=== PATIENT | female | born 2000 | race Caucasian/White ===

== ENCOUNTER 2025-08-10 17:37 | Emergency (ER) | payer OTHER, SELFPAY ==
--- OUTSIDE RECORDS SUMMARY | 2025-07-27 15:00 | XMS_ITS | Encounter Summary ---
Author Organization [facility] Address [address] [place] [address] Care Team Providers Care Screen Printing Loader Unloader Name Role Phone Unavailable Primary Care Provider Unavailabl e Encounter Details Date Type Department Care Team (Late st Contact Info) Description 07/27/2025 3:00 PM EDT Initial KYM CHARLES [address] [place] [address] Kaley Mares CNM [address] [place], [place] [id number] GA: [id number] Social History Tobacco Use Types Packs/Day Years Used Date Smoking Tobacco: Never Smokeless Tobacco: Never Tobacco Cessation:Counseling Given: Not Answered Alcohol Use Standard Drinks/Week Comments Not Currently 0 (1 standard drink = 0.6 oz pur e alcohol) Estimated Date of Delivery Comme nts Yes 03/01/2026 Based on last me nstrual period of 05/25/2025 (Exact Date) Sex and Gender Information Value Date Recorded Sex Assigned at Not on file Legal Sex Female 12:25 PM EDT Gender Identity Not on file Sexual Orientation Not on file documented as of this encounter Last Filed Vital Signs Vital Sign Reading Time Taken Comments Blood Pressure - - Pulse - - Temperature - - Respiratory Rate - - Oxygen Saturation - - Inhaled Oxygen Concentration - - Weight 75.3 kg (166 lb) 07/27/2025 3:17 PM EDT Height 167.6 cm (5' 6 ) 07/27/2025 3:17 PM EDT Body Mass Index 26.79 07/27/2025 3:17 PM EDT documented in this encounter Plan of Treatment Upcoming Encounters Date Type Department Care Team (Late st Contact Info) Description 08/29/2025 11:00 AM EDT Routine [facility] [address] [place] [address] Kaley Mares, CNM [address] [place] [address] documented as of this encounter Procedures Procedure Name Priority Date/Time Associated Diagnosis Comments URINALYSIS MICROSCOPIC Routine 07/27/2025 4:55 PM EDT Encounter for supervision of other normal in first trimester ([facility]) DRUG TOX MONITORIGN 6 W/ CONF,URINE Routine 07/27/2025 4:55 PM EDT Encounter for supervision of other normal in first trimester ([facility]) CHLAMYDIA/N. GONORRHOEAE RNA, TMA, UROGENITAL Routine 07/27/2025 4:55 PM EDT Encounter for supervision of other normal in first trimester ([facility]) CULTURE, URINE, ROUTINE Routine 07/27/2025 4:55 PM EDT Encounter for supervision of other normal in first trimester ([facility]) TSH W/REFLEX TO FT4 Routine 07/27/2025 3 :45 PM EDT Encounter for supervision of other normal in first trimester ([facility]) HEPATITIS C ANTIBODY Routine 07/27/2025 3:45 PM EDT Encounter for supervision of other normal in first trimester ([facility]) ABO GROUP AND RH TYPE Routine 07/27/2025 3:45 PM EDT Encounter for supervision of other normal in first trimester ([facility]) RUBELLA AB (IGG), IMMUNE STATUS Routine 07/27/2025 3:45 PM EDT Encounter for supervision of other normal in first trimester ([facility]) RPR (DX) W/REFL TITER AND CONFIRMATORY TESTING Routine 07/27/2025 3:45 PM EDT Encounter for supervision of other normal in first trimester ([facility]) HIV-1 AND HIV-2 ANTIBODIES Routine 07/27/2025 3:45 PM EDT Encounter for supervision of other normal in first trimester ([facility]) HEPATITIS B SURFACE ANTIGEN W/REFL CONFIRM Routine 07/27/2025 3:45 PM EDT Encounter for supervision of other normal in first trimester ([facility]) CBC Routine 07/27/2025 3:45 PM EDT Encounter for supervision of other normal in first trimester ([facility]) ANTIBODY SCREEN, RBC W/REFL ID, TITER AND AG Routine 07/27/2025 3:45 PM EDT Encounter for supervision of other normal in first trimester ([facility]) HEMOGLOBIN A1C Routine 07/27/2025 3:45 PM EDT Encounter for supervision of other normal in first trimester ([facility]) documented in this encounter Results * C. trachomatis / N. gonorrhoeae, DNA probe (07/27/2025 4:55 PM EDT) CHLAMYDIA TRACHOMATIS RNA, TMA, UROGENITAL NOT DETECTED NOT DETECTED [facility] NEISSERIA GONORRHOEAE RNA, TMA, UROGENITAL NOT DETECTED NOT DETECTED [facility] (ALWAYS MESSAGE) [facility] Comment: The analytical performance characteristics of this assay, when used to test SurePath(TM) specimens have been determined by [facility]. The modifications have not been cleared or approved by the FDA. This assay has been validated pursuant to the CLIA regulations and is used for clinical purposes. For additional information, please refer to https://education.[employer].Bibulu/faq/OZP885 (This link is being provided for information/ educational purposes only.) Swab Urine specimen obtained by clean catch procedure / Unknown 07/27/2025 4:55 PM EDT 07/28/2025 12:44 AM EDT Narrative Resulting Agency Comment Performing Organization Information Site ID: QPT Name: [facility] Address: [address] [place] [address], [address] [place] [phone] Director: Vincent Ocampo MD us Kaley Mares CNM LAB PATHOLOGY ORDERABLES Fin al Result Performing Organization Address [facility] Co de Phone Number [facility] * (ABNORMAL) URINALYSIS MICROSCOPIC (07/27/2025 4:55 PM EDT) WBC 0-5 < OR = 5 /HPF [facility] RBC NONE SEEN < OR = 2 /HPF [facility] SQUAMOUS EPITHELIAL CELLS 0-5 < OR = 5 /HPF [facility] BACTERIA FEW(A) NONE SEEN /HPF [facility] HYALINE CAST NONE SEEN NONE SEEN /LPF [facility] NOTE [facility] Comment: This urine was analyzed for the presence of WBC, RBC, bacteria, casts, and other formed elements. Only those elements seen were reported. 07/27/2025 4:55 PM EDT 07/28/2025 12:44 AM EDT Narrative Resulting Agency Comment Performing Organization Information Site ID: QPT Name: [facility] Address: [address] [place] [address], [address] [place] [phone] Director: Vincent Ocampo MD us Kaley Mares CNM LAB BLOOD ORDERABLES Final R esult Performing Organization Address [facility] de Phone Number [facility] * Urine culture (07/27/2025 4:55 PM EDT) MICRO NUMBER [id number] [facility] SPECIMEN QUALITY Adequate [facility] SOURCE: ([facility]) URINE [facility] STATUS FINAL [facility] RESULT SEE NOTE [facility] Comment: No Growth Urine Urine specimen obtained by clean catch procedure / Unknown 07/27/2025 4:55 PM EDT 07/28/2025 12:44 AM EDT Narrative Resulting Agency Comment Performing Organization Information Site ID: QPT Name: [facility] Address: [address] [place] [address], [address] [place] [phone] Director: Vincent Ocampo MD us Kaley Mares CNM LAB MICROBIOLOGY - GENERAL O RDERABLES Final Result Performing Organization Address [facility] Co de Phone Number [facility] * DRUG TOX MONITORIGN 6 W/ CONF,URINE (07/27/2025 4:55 PM EDT) AMPHETAMINES NEGATIVE <500 ng/mL [facility] BARBITURATES NEGATIVE <300 ng/mL [facility] BENZODIAZEPINES NEGATIVE <100 ng/mL [facility] COCAINE METABOLITES NEGATIVE <150 ng/mL [facility] MARIJUANA METABOLITE 20 NEGATIVE <20 ng/mL [facility] METHADONE METABOLITE NEGATIVE <100 ng/mL [facility] OPIATES NEGATIVE <100 ng/mL [facility] OXYCODONE NEGATIVE <100 ng/mL [facility] PHENCYCLIDINE NEGATIVE <25 ng/mL [facility] (ALWAYS MESSAGE) [facility] Comment: See Note 1 Note 1 This drug testing is for medical treatment only. Analysis was performed as non-forensic testing and these results should be used only by healthcare providers to render diagnosis or treatment, or to monitor progress of medical conditions. For assistance with interpreting these drug results, please contact a [facility] Toxicology Specialist: [phone] ( ), M-F, 8am-6pm EST. 07/27/2025 4:55 PM EDT 07/28/2025 12:44 AM EDT Narrative Resulting Agency Comment Performing Organization Information Site ID: QPT Name: [facility] Address: [address] [place] [address], [address] [place] [phone] Director: Vincent Ocampo MD us Kaley JARA LAB BODY FLUIDS AND STOOLS O RDERABLES Final Result [facility] * Hepatitis C antibody (07/27/2025 3:45 PM EDT) HEPATITIS C ANTIBODY NON-REACTI VE NON-REACT [facility] Comment: HCV antibody was non-reactive. There is no laboratory evidence of HCV infection. In most cases, no further action is required. However, if recent HCV exposure is suspected, a test for HCV RNA (test code 71155) is suggested. For additional information please refer to http://education.[employer]/faq/DMR45n7 (This link is being provided for informational/ educational purposes only.) Blood Venous blood specimen / Unknown 07/27/2025 3:45 PM EDT 07/27/2025 3:46 PM EDT Narrative [facility] - 07/28/2025 1:09 PM EDT MULTIPLE COLLECTION TIMES FOR SAME TEST TYPE. Resulting Agency Comment Performing Organization Information Site ID: QPT Name: [facility] Address: [address] [place] [address], [address] [place], [place] [id number] Director: Vincent Ocampo MD us Kaley L Floro CN LAB BLOOD ORDERABLES Final R esult Performing Organization Address [facility] de Phone Number [facility] * ABO/Rh (07/27/2025 3:45 PM EDT) ABO GROUP O [facility] RH TYPE RH(D) POSITIVE [facility] Comment: For additional information, please refer to http://education.[employer]/faq/QBK828 (This link is being provided for informational/ educational purposes only.) Blood Venous blood specimen / Unknown 07/27/2025 3:45 PM EDT 07/27/2025 3:46 PM EDT Narrative [facility] - 07/28/2025 1:09 PM EDT MULTIPLE COLLECTION TIMES FOR SAME TEST TYPE. Resulting Agency Comment Performing Organization Information Site ID: QPT Name: [facility] Address: [address] [place] [address], [address] [place], [place] [phone] Director: Vincent Ocampo MD us [facility] LAB BLOOD ORDERABLES Final R esult Performing Organization Address [facility] de Phone Number [facility] * HIV-1 and HIV-2 antibodies (07/27/2025 3:45 PM EDT) HIV FINAL INTERPRETATION HIV NEGATIVE [facility] Comment: HIV-1 antigen and HIV-1/HIV-2 antibodies were not detected. There is no laboratory evidence of HIV infection. HIV AG/AB, 4TH GEN NON-REACTIVE NON-REACT [facility] Blood Venous blood specimen / Unknown 07/27/2025 3:45 PM EDT 07/27/2025 3:46 PM EDT Narrative [facility] - 07/28/2025 1:09 PM EDT MULTIPLE COLLECTION TIMES FOR SAME TEST TYPE. Resulting Agency Comment Performing Organization Information Site ID: QPT Name: [facility] Address: [address] [place] [address], [address] [place] [phone] Director: Vincent Ocampo MD us Kaley L Floro CN LAB BLOOD ORDERABLES Final R esult Performing Organization Address [facility] Co de Phone Number [facility] * TSH W/REFLEX TO FT4 (07/27/2025 3:45 PM EDT) TSH W/REFLEX TO FT4 1.83 mIU/L [facility] Comment: Reference Range > or = 20 Years 0.40-4.50 Ranges First trimester 0.26-2.66 Second trimester 0.55-2.73 Third trimester 0.43-2.91 07/27/2025 3:45 PM EDT 07/27/2025 3:46 PM EDT Narrative [facility] - 07/28/2025 1:09 PM EDT MULTIPLE COLLECTION TIMES FOR SAME TEST TYPE. Resulting Agency Comment Performing Organization Information Site ID: QPT Name: [facility] Address: [address] [place] [address], [address] [place] [phone] Director: Vincent Ocampo MD us Kaley Juan Carlos Mares CN LAB BLOOD ORDERABLES Final R esult Performing Organization Address [facility] de Phone Number [facility] * Hemoglobin A1c (07/27/2025 3:45 PM EDT) Hemoglobin A1C 5.3 <5.7 % [facility] Comment: For the purpose of screening for the presence of diabetes: <5.7% Consistent with the absence of diabetes 5.7-6.4% Consistent with increased risk for diabetes (prediabetes) > or =6.5% Consistent with diabetes This assay result is consistent with a decreased risk of diabetes. Currently, no consensus exists regarding use of hemoglobin A1c for diagnosis of diabetes in children. According to [place] [employer] Association (ADA) guidelines, hemoglobin A1c <7.0% represents optimal control in non- diabetic patients. Different metrics may apply to specific patient populations. Standards of Medical Care in Diabetes(ADA). Blood Venous blood specimen / Unknown 07/27/2025 3:45 PM EDT 07/27/2025 3:46 PM EDT Narrative [facility] - 07/28/2025 1:09 PM EDT MULTIPLE COLLECTION TIMES FOR SAME TEST TYPE. Resulting Agency Comment Performing Organization Information Site ID: QPT Name: [facility] Address: [address] [place] [address], [address] [place] [address] Director: Vincent Ocampo MD us Kaley L Floro CN LAB BLOOD ORDERABLES Final R esult Performing Organization Address [facility] de Phone Number [facility] * RPR (07/27/2025 3:45 PM EDT) RPR (MONITOR) W/REFL TITER NON-REACTI VE NON-REACTI VE [facility] Blood Venous blood specimen / Unknown 07/27/2025 3:45 PM EDT 07/27/2025 3:46 PM EDT Narrative [facility] - 07/28/2025 1:09 PM EDT MULTIPLE COLLECTION TIMES FOR SAME TEST TYPE. Resulting Agency Comment Performing Organization Information Site ID: QPT Name: [facility] Address: [address] [place] [address], [address] [place] [phone] Director: Vincent Ocampo MD Kaley [employer] CN LAB BLOOD ORDERABLES Final R esult Performing Organization Address [facility] de Phone Number [facility] * Antibody screen (07/27/2025 3:45 PM EDT) ANTIBODY SCREEN, RBC W/REFL ID, TITER AND AG NO ANTIBODIES DETECTED [facility] Comment: Reference range No antibodies detected This assay is a screening test for the detection of red blood cell antibodies. The test is not to be used for pretransfusion screening or for the medical management of an alloimmunized . Blood Venous blood specimen / Unknown 07/27/2025 3:45 PM EDT 07/27/2025 3:46 PM EDT Narrative [facility] - 07/28/2025 1:09 PM EDT MULTIPLE COLLECTION TIMES FOR SAME TEST TYPE. Resulting Agency Comment Performing Organization Information Site ID: QPT Name: [facility] Address: [address] [place] [address], [address] [place] [address] Director: Vincent Ocampo MD Kaley Mares CNM LAB BLOOD ORDERABLES Final R esult [facility] * CBC (07/27/2025 3:45 PM EDT) WHITE BLOOD CELL COUNT 9.2 3.8 - 10.8 Thousand/u L [facility] RED BLOOD CELL COUNT 4.25 3.80 - 5.10 Million/uL [facility] HEMOGLOBIN 12.1 11.7 - 15.5 g/dL [facility] HEMATOCRIT 37.0 35.0 - 45.0 % [facility] MCV 87.1 80.0 - 100.0 fL [facility] MCH 28.5 27.0 - 33.0 pg [facility] MCHC 32.7 32.0 - 36.0 g/dL [facility] Comment: For adults, a slight decrease in the calculated MCHC value (in the range of 30 to 32 g/dL) is most likely not clinically significant; however, it should be interpreted with caution in correlation with other red cell parameters and the patient's clinical condition. RDW 11.9 11.0 - 15.0 % [facility] PLATELET COUNT 335 140 - 400 Thousand/u L [facility] MPV 10.0 7.5 - 12.5 fL [facility] Blood Venous blood specimen / Unknown 07/27/2025 3:45 PM EDT 07/27/2025 3:46 PM EDT Narrative [facility] - 07/28/2025 1:09 PM EDT MULTIPLE COLLECTION TIMES FOR SAME TEST TYPE. Resulting Agency Comment Performing Organization Information Site ID: QPT Name: [facility] Address: [address] [place] [address], [address] [place] [phone] Director: Vincent Ocampo MD Kaley Mares CNM LAB BLOOD ORDERABLES Final R esult [facility] * Rubella antibody, IgG (07/27/2025 3:45 PM EDT) RUBELLA AB (IGG), IMMUNE STATUS 3.74 Index [facility] Comment: Index Interpretation ----- <0.90 Not consistent with immunity 0.90-0.99 Equivocal > or = 1.00 Consistent with immunity The presence of rubella IgG antibody suggests immunization or past or current infection with rubella virus. Blood Venous blood specimen / Unknown 07/27/2025 3:45 PM EDT 07/27/2025 3:46 PM EDT Narrative [facility] - 07/28/2025 1:09 PM EDT MULTIPLE COLLECTION TIMES FOR SAME TEST TYPE. Resulting Agency Comment Performing Organization Information Site ID: QPT Name: [facility] Address: [address] [place] [address], [address] [place] [phone] Director: Vincent Ocampo MD Kaley Mares [facility] LAB BLOOD ORDERABLES Final R esult Performing Organization Address [facility] Co de Phone Number [facility] * Hepatitis B surface antigen (07/27/2025 3:45 PM EDT) HEPATITIS B SURFACE ANTIGEN NON-REACTI VE NON-REACTI VE [facility] Comment: For additional information, please refer to http://education.[employer]/faq/FBO492 (This link is being provided for informational/ educational purposes only.) Blood Venous blood specimen / Unknown 07/27/2025 3:45 PM EDT 07/27/2025 3:46 PM EDT Narrative [facility] - 07/28/2025 1:09 PM EDT MULTIPLE COLLECTION TIMES FOR SAME TEST TYPE. Resulting Agency Comment Performing Organization Information Site ID: QPT Name: [facility] Address: [address] [place] [address], [address] [place] [phone] Director: Vincent Ocampo MD Kaley Mares CNM LAB BLOOD ORDERABLES Final R esult [facility] documented in this encounter Visit Diagnoses Diagnosis Encounter for supervision of other normal in first trimester ([facility]) documented in this encounter
--- OUTSIDE RECORDS SUMMARY | 2025-07-27 15:30 | XMS_ITS | Encounter Summary ---
Author Organization [facility] Address [address] [place] [address] Care Team Providers Care Customer Sales Specialist Name Role Phone Unavailable Primary Care Provider Unavailabl e Encounter Details Date Type Department Care Team (Latest Contact Info) Description 07/27/2025 3:30 PM EDT Ancillary Procedure [facility] [address] [facility] [address] [place] [address] Amenorrhea; examination or test, positive result ([facility]) Social History Tobacco Use Types Packs/Day Years Used Date Smoking Tobacco: Never Smokeless Tobacco: Never Alcohol Use Standard Drinks/Week Comments Not Currently [...] on file documented as of this encounter Plan of Treatment Upcoming Encounters Date Type Department Care Team (Late st Contact Info) Description 08/29/2025 11:00 AM EDT Routine [facility] [address] [place] [address] Kaley Mares CNM [address] [place] [address] documented as of this encounter Procedures Procedure Name Priority Date/Time Associated Diagnosis Comments US OB < 14 WEEKS EARLY Routine 07/27/2025 3:46 PM EDT Amenorrhea examination or test, positive result ([facility]) documented in this encounter Results * US OB less than 14 weeks early (07/27/2025 3:46 PM EDT) Anatomical Region Laterality Modality Body Ultrasound 07/27/2025 4:53 PM EDT Impressions 07/28/2025 7:45 AM EDT Findings consistent with a live intrauterine gestation, current sonographic age of 9weeks and 1 days resulting in an estimated date of delivery of March 01, 2026. TRANSCRIBED BY: ELECTRONICALLY SIGNED BY: Zak Edmondson MD Narrative 07/28/2025 7:45 AM EDT FINDINGS: A single intrauterine gestational sac is present, 3.6 cm 8 weeks and 6 days. No subchorionic hemorrhage. A single pole is present. Normal heart rate at 176 beats per minute. Yolk sac also is seen. Current sonographic age is 9 weeks and 1 days based on the crown-rump length measurement of 2.4cm. Based on this age, current estimated date of delivery is March 01, 2026. No pelvic fluid or adnexal mass present. Cervix closed, length is 3.3 cm. Procedure Note Zak Edmondson MD - 07/28/2025 FINDINGS: A single intrauterine gestational sac is present, 3.6 cm 8 weeks and 6days. No subchorionic hemorrhage. A single pole is present. Normalfetal heart rate at 176 beats per minute. Yolk sac also is seen.Current sonographic age is 9 weeks and 1 days based on the crown-rumplength measurement of 2.4cm. Based on this age, current estimated dateof delivery is March 01, 2026. No pelvic fluid or adnexal mass present.Cervix closed, length is 3.3 cm. IMPRESSION: Findings consistent with a live intrauterine gestation, currentsonographic age of 9weeks and 1 days resulting in an estimated date ofdelivery of March 01, 2026. TRANSCRIBED BY: ELECTRONICALLY SIGNED BY: Zak Edmondson MD Kaley Mares CNM IMG OB US PROCEDURES Final R esult documented in this encounter Visit Diagnoses Diagnosis Amenorrhea Absence of menstruation examination or test, positive result ([facility]) examination or test, positive result documented in this encounter
--- OUTSIDE RECORDS SUMMARY | 2025-08-04 13:00 | XMS_ITS | Encounter Summary ---
Author Organization [facility] Address [address] [place] [address] Care Team Providers Care Sealer Operator Name Role Phone Kaitlin Ellison MD Primary Care Provider [phone] Herber Thomas MD Unavailable Jeromy Sanchez MD Unavailable [phone] Sonja Kat APRN.DAMAGED FREIGHT INSPECTOR Unavailable [phone] Source Comments In the event this information is protected by the Federal Confidentiality of Alcohol and Drug AbusePatient Records regulations: The Federal rules restrict any use of the information to criminally investigate or prosecute any alcohol or drug abuse patient.[facility] Reason for Visit * [place] Prior Authorization (Routine) - Authorized Specialty Diagnoses / Procedures Referred By Contac t 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 AGALSIDASE BETA INJECTION Jeromy Sanchez MD [address] [place] [address] [place] [address] Phone: tel: fax: Hematology/Oncology [address] [place] [address] [place] [address] Phone: tel: fax: Referral ID Status Reason Start Date Expiration Date V isits Requested Visits Authorized [id number] Authorized 12/11/2022 12/15/2025 73 73 Encounter Details Date Type Department Care Team (Latest Contact Info) Description 08/04/2025 1:00 PM EDT Infusion Center Hematology/Oncology [address] [place] [address] [place] [address] Fabry disease (HCC) (Primary Dx) Social History Tobacco Use Types Packs/Day Years Used Date Smoking Tobacco: Never Passive Smoke Exposure: Never Smokeless Tobacco: Never Alcohol Use Standard Drinks/Week Comments Yes 0 (1 standard drink = 0.6 oz pur e alcohol) occassionally PHQ-2 Answer Date Recorded PHQ-2 score 0 11/21/2022 Area Deprivation Index Answer Date Yoni rded National Score (1-100), lower number is lower ri sk 74 08/05/2024 State Score (1-10), lower number is lower risk 6 08/05/2024 Data from: https://www.neighborhoodatlas.medicine.[facility]/. Last address used for calculation [address] [place] [address] 08/05/2024 Comments No Sex and Gender Information Value Date Recorded Sex Assigned at Not on file Legal Sex Female 11:15 AM EDT Gender Identity Not on file Sexual Orientation Not on file documented as of this encounter Last Filed Vital Signs Vital Sign Reading Time Taken Comments Blood Pressure 107/66 08/04/2025 1:07 PM EDT Pulse 75 08/04/2025 1:07 PM EDT Temperature 36.7 C (98.1 F) 08/04/2025 1:07 PM EDT Respiratory Rate 16 08/04/2025 1:07 PM EDT Oxygen Saturation 99% 08/04/2025 1:07 PM EDT Inhaled Oxygen Concentration - - Weight 74.8 kg (164 lb 14.5 oz) 08/04/2025 1:07 PM EDT Height - - Body Mass Index 26.62 03/10/2025 12:04 PM EDT documented in this encounter Plan of Treatment Upcoming Encounters Date Type Department Care Team (Latest Contact Info) Description 08/18/2025 1:15 PM EDT Infusion Center Hematology/Oncology [address] [place] [address] [place] [address] Fabrazyme every 2 weeks 09/01/2025 1:15 PM EDT Infusion Center Hematology/Oncology [address] [place] [address] Fabrazyme every 2 weeks 09/15/2025 1:30 PM EDT Infusion Center Hematology/Oncology [address] [place] [address] Fabrazyme every 2 weeks 09/29/2025 1:15 PM EST Infusion Center Hematology/Oncology [address] [place] [address] Fabrazyme every 2 weeks 10/13/2025 1:15 PM EST Infusion Center Hematology/Oncology [address] [place] [address] Fabrazyme every 2 weeks documented as of this encounter Visit Diagnoses Diagnosis Fabry disease (HCC)- Primary Lipidoses documented in this encounter Administered Medications Inactive Administered Medications - up to 3 most recent administrations Medication Order MAR Action Action Date Dose Rate Site agalsidase beta 70 mg in NaCl 0.9% 124 mL (FABRAZYME) 70 mg (1 mg/kg/dose 70 kg Order-specific weight), INTRAVENOUS, ONCE, 1 dose, On Thu08/04/25 at 1330, EXP: Immediate Use. Initiate at 15 mg/hour. For subsequent infusions, infusion rate for patients weighing greater than or equal to 30 kg can be increased each infusion by 3 to 5 mg/hr based on tolerance (minimum duration is 1.5 hours). Do not titrate above 15 mg/hr for patients weighing less than 30 kg. Immediate Use Administer with 0.2 micron filter - Refrigerate.Indications:F abry disease (HCC) New Bag/Syringe/Bottle 08/04/2025 1:32 PM EDT 70 mg 83 mL/hr documented in this encounter Care Teams Sealer Operator Relationship Specialty Start Date End Date Kaitlin Ellison MD [address] [place] [address] PCP - General Family Medicine 05/30/22 Herber Thomas MD [address] [place] [address] Primary Staff Physician Cardiology 10/31/22 Jeromy Sanchez MD [address] [place] [address] Physician Hematology/Oncology 01/01/23 Snoja Kat APRN.DAMAGED FREIGHT INSPECTOR [address] [place] [address] Nurse Practitioner Hematology/Oncology 01/01/23 documented as of this encounter
[2025-08-10 17:51] VITALS: BP 103/70; PULSE 69; TEMP 37.1; O2SAT 100; BMI 25.8
--- NOTE | 2025-08-10 18:06 | US_ITS ---
[facility] [place] [id number] Patient Name: KVNG CARIAS MRN: [id number] date: 2000 Sex: F Assigned Patient Location: ER Current Patient Location: ED.MAIN Accession/Order Number: [id number] Exam Date: 08/10/2025 19:30 Report Date: 08/10/2025 20:26 At the request of: MARTHA WALKER MD Procedure: US OB transvaginal Transvaginal obstetrical ultrasound INDICATION: History of IVF, pain x1 day COMPARISON: None FINDINGS: Uterus anteverted. Within the uterus, there is evidence of gestational sac, yolk sac, and pole. Cardiac activity visualized with 159 beats per minutes. Heterogeneous focus adjacent to the gestational sac measuring 4.6 x 1.6 x 1.7 cm possible implantational hemorrhage Right ovary 3.0 x 1.8 x 2.2 cm. Unremarkable. Left ovary 2.5 x 1.9 x 1.8 cm size unremarkable. Cervical length 3.8 cm and closed. US/US OB transvaginal IMPRESSION: Single live intrauterine gestation with heart rate 159bpm. Heterogeneous signal adjacent gestational sac noted 4.2 cm x 1.6 x 1.7 cm in size. Questionable a implantational hemorrhage. Close attention on follow-up imaging recommended. Impression dictated by: John Arguelles M.D. 08/10/2025 8:26 PM Dictation Location: [place] [address] Electronically authenticated by: [id number] Y Date: 08/10/2025 20:26
--- OUTSIDE RECORDS SUMMARY | 2025-08-10 18:16 | XMS_ITS | Encounter Summary ---
Author Organization [facility] Address [address] [place] [address] Care Team Providers Care Field Court Researcher Name Role Phone Kaitlin Ellison MD Primary Care Provider [phone] Herber Thomas MD Unavailable Jeromy Sanchez MD Unavailable [phone] Sonja Kat TEAMCENTER SOLUTION ARCHITECT.CHIEF SUPPLY CHAIN OFFICER Unavailable Jamila Nix RN Unavailable [phone] Source Comments In the event this information is protected by the Federal Confidentiality of Alcohol and Drug AbusePatient Records regulations: The Federal rules restrict any use of the information to criminally investigate or prosecute any alcohol or drug abuse patient.[facility] Encounter Details Date Type Department Care Team (Late st Contact Info) Description 03/13/2023 Get Medical Advice [facility] [address] [id number] Hamida Kumar, [facility] [address] [place] [address] Home Infusion Social History Tobacco Use Types Packs/Day Years Used Date Smoking Tobacco: Never Passive Smoke Exposure: Never Smokeless Tobacco: Never Alcohol Use Standard Drinks/Week Comments Yes 0 (1 standard drink = 0.6 oz pur e alcohol) occassionally PHQ-2 Answer Date Recorded PHQ-2 score 0 11/21/2022 Area Deprivation Index Answer Date Yoni rded National Score (1-100), lower number is lower ri sk 62 11/28/2022 State Score (1-10), lower number is lower risk N ot on file 11/28/2022 Data from: https://www.neighborhoodatlas.medicine.[facility]/. Last address used for calculation [address] 11/28/2022 Comments No Sex and Gender Information Value Date Recorded Sex Assigned at Not on file Legal Sex Female 11:15 AM EDT Gender Identity Not on file Sexual Orientation Not on file documented as of this encounter Plan of Treatment Upcoming Encounters Date Type Department Care Team (Latest Contact Info) Description 08/18/2025 1:15 PM EDT Infusion Center Hematology/Oncology [address] [facility] [place] [address] Fabrazyme every 2 weeks 09/01/2025 1:15 PM EDT Infusion Center Hematology/Oncology [address] [facility] [place] [address] Fabrazyme every 2 weeks 09/15/2025 1:30 PM EDT Infusion Center Hematology/Oncology [address] [place] [address] [place] [address] Fabrazyme every 2 weeks 09/29/2025 1:15 PM EST Infusion Center Hematology/Oncology [address] [facility] [place] [address] Fabrazyme every 2 weeks 10/13/2025 1:15 PM EST Infusion Center Hematology/Oncology [address] [place] [address] [place] [address] Fabrazyme every 2 weeks documented as of this encounter Visit Diagnoses Not on filedocumented in this encounter Care Teams Field Court Researcher Relationship Specialty Start Date End Date Kaitlin Ellison MD [address] [place] [address] PCP - General Family Medicine 05/30/22 Herber Thomas MD [address] [place] [address] Primary Staff Physician Cardiology 10/31/22 Jeromy Sanchez MD [address] [place] [address] [place] [address] Physician Hematology/Oncology 01/01/23 Sonja Kat APRN.CHIEF SUPPLY CHAIN OFFICER [address] [place] [address] [place] [address] Nurse Practitioner Hematology/Oncology 01/01/23 Jamila Nix, ARNALDO [address] [place] [address] [place] [address] Specialty Vibration Technician Hematology/Oncology 01/01/23 04/27/25 documented as of this encounter
--- OUTSIDE RECORDS SUMMARY | 2025-08-10 18:16 | XMS_ITS | Encounter Summary ---
Author Organization [facility] Address [address] [place] [address] Care Team Providers Care Ball Worker Name Role Phone Kaitlin Ellison MD Primary Care Provider [phone] Herber Thomas MD Unavailable Jeromy Sanchez MD Unavailable [phone] Sonja Kat RADAR SCIENTIST.PARTY PLAN SALES AGENT Unavailable [phone] Jamila Nix RN Unavailable [phone] Source Comments In the event this information is protected by the Federal Confidentiality of Alcohol and Drug AbusePatient Records regulations: The Federal rules restrict any use of the information to criminally investigate or prosecute any alcohol or drug abuse patient.[facility] Encounter Details Date Type Department Care Team (Latest Contact Info) Description 01/07/2024 Patient Msg Reproductive Endocrinology Infertility [address] [id number] Jay Scherer MD [address] [place] [address] Nice meeting you both! Social History Tobacco Use Types Packs/Day Years [...] N ot on file 11/28/2022 Data from: https://www.neighborhoodatlas.medicine.[facility]/. Last address used for calculation [address] 11/28/2022 Comments No Sex and Gender Information Value Date Recorded Sex Assigned at Not on file Legal Sex Female 11:15 AM EDT Gender Identity Not on file Sexual Orientation Not on file documented as of this encounter Plan of Treatment Upcoming Encounters Date Type Department Care Team (Latest Contact Info) Description 08/18/2025 1:15 PM EDT Infusion Center Hematology/Oncology [address] [place] [address] [place] [address] Fabrazyme every 2 weeks 09/01/2025 1:15 PM EDT Infusion Center Hematology/Oncology [address] [place] [address] [place] [address] Fabrazyme every 2 weeks 09/15/2025 1:30 PM EDT Infusion Center Hematology/Oncology [address] [place] [address] [place] [address] Fabrazyme every 2 weeks 09/29/2025 1:15 PM EST Infusion Center Hematology/Oncology [address] [place] [address] [place] [address] Fabrazyme every 2 weeks 10/13/2025 1:15 PM EST Infusion Center Hematology/Oncology [address] [place] [address] [place] [address] Fabrazyme every 2 weeks documented as of this encounter Visit Diagnoses Not on filedocumented in this encounter Care Teams Ball Worker Relationship Specialty Start Date End Date Kaitlin Ellison MD [address] [place] [address] PCP - General Family Medicine 05/30/22 Herber Thomas MD [address] [place] [address] Primary Staff Physician Cardiology 10/31/22 Jeromy Sanchez MD [address] [facility] [place] [place] [address] Physician Hematology/Oncology 01/01/23 Sonja Kat, PONCE.PARTY PLAN SALES AGENT [address] [place] [address] [place] [address] Nurse Practitioner Hematology/Oncology 01/01/23 Jamila Nix, ARNALDO [address] [facility] [place] [place] [address] Specialty Curtain Worker Hematology/Oncology 01/01/23 04/27/25 documented as of this encounter
--- OUTSIDE RECORDS SUMMARY | 2025-08-10 18:16 | XMS_ITS | Encounter Summary ---
Author Organization [facility] Address [address] [place] [address] Care Team Providers Care Recruitment And Outreach Assistant Name Role Phone Kaitlin Ellison MD Primary Care Provider [phone] Herber Thomas MD Unavailable Jeromy Sanchez MD Unavailable [phone] Sonja Kat REGISTERED DENTAL ASSISTANT.PRODUCTION DRILLING MACHINE OPERATOR Unavailable [phone] Jamila Nix RN Unavailable [phone] Source Comments In the event this information is protected by the Federal Confidentiality of Alcohol and Drug AbusePatient Records regulations: The Federal rules restrict any use of the information to criminally investigate or prosecute any alcohol or drug abuse patient.[facility] Encounter Details Date Type Department Care Team (Latest Contact Info) Description 02/29/2024 Patient Msg Reproductive Endocrinology Infertility [address] [place] [address] Provider, [facility] Infertility Benefits Social History Tobacco Use Types Packs/Day Years [...] N ot on file 11/28/2022 Data from: https://www.neighborhoodatlas.medicine.[facility]/. Last address used for calculation [address] [place] [address] [address] 11/28/2022 Comments No Sex and Gender Information Value Date Recorded Sex Assigned at Not on file Legal Sex Female 11:15 AM EDT Gender Identity Not on file Sexual Orientation Not on file documented as of this encounter Plan of Treatment Upcoming Encounters Date Type Department Care Team (Latest Contact Info) Description 08/18/2025 1:15 PM EDT Infusion Center Hematology/Oncology [address] [place] [address] [place] [address] Fabrazyme every 2 weeks 09/01/2025 1:15 PM EDT Infusion Center Hematology/Oncology [address] [place] [address] [place] [address] Fabrazyme every 2 weeks 09/15/2025 1:30 PM EDT Infusion Center Hematology/Oncology [address] [place] [address] [place] [address] Fabrazyme every 2 weeks 09/29/2025 1:15 PM EST Infusion Center Hematology/Oncology [address] [place] [address] [place] [address] Fabrazyme every 2 weeks 10/13/2025 1:15 PM EST Infusion Center Hematology/Oncology [address] [place] [address] [place] [address] Fabrazyme every 2 weeks documented as of this encounter Visit Diagnoses Not on filedocumented in this encounter Care Teams Recruitment And Outreach Assistant Relationship Specialty Start Date End Date Kaitlin Ellison MD [address] [place] [address] PCP - General Family Medicine 05/30/22 Herber Thomas MD [address] [place] [address] Primary Staff Physician Cardiology 10/31/22 Jeromy Sanchez MD [address] [facility] [place] [address] Physician Hematology/Oncology 01/01/23 Sonja Kat APRN.PRODUCTION DRILLING MACHINE OPERATOR [address] [facility] [place] [address] Nurse Practitioner Hematology/Oncology 01/01/23 Jamila Nix, ARNALDO [address] [facility] [place] [address] Specialty Informatics Nurse Specialist Hematology/Oncology 01/01/23 04/27/25 documented as of this encounter
--- OUTSIDE RECORDS SUMMARY | 2025-08-10 18:16 | XMS_ITS | Encounter Summary ---
Author Organization [facility] Address [address] [place] [address] Phone Care Team Providers Care Graduate Teaching Associate Name Role Phone Kaitlin Ellison MD Primary Care Provider [phone] Encounter Details Date Type Department Care Team ([facility] st Contact Info) Description 12/07/2024 Lab Requisition [facility] [address] [place] [phone] Hernán Ulrich MD [address] [place] [address] Reproductive Gynecology [place] [address] Missed (HHS-HCC) Social History Tobacco Use Types Packs/Day Years Used Date Smoking Tobacco: Never Assessed Comments Unknown Sex and Gender Information Value Date Recorded Sex Assigned at Not on file Legal Sex Female 6:57 PM EST Gender Identity Not on file Sexual Orientation Not on file documented as of this encounter Plan of Treatment Not on file documented as of this encounter Procedures Procedure Name Priority Date/Time Associated Diagnosis Comments SURGICAL PATHOLOGY EXAM Routine 12/07/2024 1:33 PM EST Missed (HHS-HCC) documented in this encounter Results * Surgical Pathology Exam (12/07/2024 1:33 PM EST) Case Report Surgical Pathology Case: [id number] Authorizing Provider: Hernán Ulrich MD Collected: 12/07/2024 1333 Ordering Location: [facility] Received: 12/07/2024 1902 Center Pathologist: Houston Moss MD Specimen: PRODUCTS OF CONCEPTION 12/13/2024 9:09 AM EST [facility] FINAL DIAGNOSIS A. PRODUCTS OF CONCEPTION: -- EARLY FIRST TRIMESTER CHORIONIC SAC WITH PARTIALLY HYDROPIC/POORLY VASCULARIZED VILLI --WELL-PRESERVED GESTATIONAL ENDOMETRIUM AND IMPLANTATION SITE 12/13/2024 9:09 AM EST [facility] at 0909 EST By the signature on this report, the individual or group listed as making the Final Interpretation/Di agnosis certifies that they have reviewed this case. 12/13/2024 9:09 AM EST [facility] Clinical History None provided 12/13/2024 9:09 AM EST [facility] Gross Description A: Received in formalin, labeled with the patient s name and hospital number and products of conception , are multiple fragments of jackson-brown soft tissue and clotted blood aggregating to 6.6 x 6.3 x 2.4 cm. Possible villous tissue is identified measuring 2.0 x 1.3 x 0.5 cm. Facility Maintenance Mechanic sections are submitted in 3 cassettes. BRUNA Summary of Cassettes: Specimen Label Site A 1 possible villous tissue 2 non-villous tissue 3 additional villous and non-villous tissue 12/13/2024 9:09 AM EST [facility] Tissue (PRODUCTS OF CONCEPTION) 12/07/2024 1:33 PM EST 12/07/2024 7:02 PM EST Hernán Ulrich MD LAB PATHOLOGY ORDERABLES F inal Result [facility] [address] [address] documented in this encounter Visit Diagnoses Diagnosis Missed ([facility]) Missed documented in this encounter Care Teams Graduate Teaching Associate Relationship Specialty Start Date End Date Kaitlin Ellison MD [address] [place] [address] [place] [address] PCP - General Family Medicine 12/07/24 documented as of this encounter
--- OUTSIDE RECORDS SUMMARY | 2025-08-10 18:16 | XMS_ITS | Encounter Summary ---
Author Organization [facility] Address [address] [place] [address] Care Team Providers Care Fagot Heater Helper Name Role Phone Kaitlin Ellison MD Primary Care Provider Herber Thomas MD Unavailable Jeromy Sanchez MD Unavailable [phone] Sonja Kat TECHNICAL SERVICES REP.SUPERVISOR MOLD CONSTRUCTION Unavailable [phone] Jamila Nix RN Unavailable Source Comments In the event this information is protected by the Federal Confidentiality of Alcohol and Drug AbusePatient Records regulations: The Federal rules restrict any use of the information to criminally investigate or prosecute any alcohol or drug abuse patient.[facility] Encounter Details Date Type Department Care Team (Late st Contact Info) Description 10/28/2024 Get Medical Advice [facility] [address] [phone] Provider, [facility] Infusions while Social History Tobacco Use Types Packs/Day Years [...] is lower risk 6 08/05/2024 Data from: https://www.neighborhoodatlas.medicine.[facility]/. Last address used for calculation [address] [place] [address] 08/05/2024 Comments No Sex and Gender Information Value Date Recorded Sex Assigned at Not on file Legal Sex Female 11:15 AM EDT Gender Identity Not on file Sexual Orientation Not on file documented as of this encounter Plan of Treatment Upcoming Encounters Date Type Department Care Team (Latest Contact Info) Description 08/18/2025 1:15 PM EDT Infusion Center Hematology/Oncology [address] [place] [address] [place] [address] Fabrazyme every 2 weeks 09/01/2025 1:15 PM EDT Infusion Center Hematology/Oncology [address] [place] [address] [place] [address] Fabrazyme every 2 weeks 09/15/2025 1:30 PM EDT Infusion Center Hematology/Oncology [address] [place] [address] [place] [address] Fabrazyme every 2 weeks 09/29/2025 1:15 PM EST Infusion Center Hematology/Oncology [address] [place] [address] [place] [address] Fabrazyme every 2 weeks 10/13/2025 1:15 PM EST Infusion Center Hematology/Oncology [address] [place] [address] [place] [address] Fabrazyme every 2 weeks documented as of this encounter Visit Diagnoses Not on filedocumented in this encounter Care Teams Fagot Heater Helper Relationship Specialty Start Date End Date Kaitlin Ellison MD [address] [place] [address] PCP - General Family Medicine 05/30/22 Herber Thomas MD [address] [place] [address] Primary Staff Physician Cardiology 10/31/22 Jeromy Sanchez MD [address] [facility] [place] [address] Physician Hematology/Oncology 01/01/23 Sonja Kat APRN.[facility] [address] [facility] [place] [address] Nurse Practitioner Hematology/Oncology 01/01/23 Jamila Nix, ARNALDO [address] [facility] [place] [address] Specialty High Heel Builder Hematology/Oncology 01/01/23 04/27/25 documented as of this encounter
--- OUTSIDE RECORDS SUMMARY | 2025-08-10 18:16 | XMS_ITS | Clinical Summary ---
Author Organization [facility] Address [address] [place] [address] Phone Care Team Providers Care Iridologist Name Role Phone Kaitlin Ellison MD Primary Care Provider [phone] Social History Tobacco Use Types Packs/Day Years Used Date Smoking Tobacco: Never Assessed Comments Unknown Sex and Gender Information Value Date Recorded Sex Assigned at Not on file Legal Sex Female 6:57 PM EST Gender Identity Not on file Sexual Orientation Not on file Plan of Treatment Health Maintenance Due Date Last Done Comments HIV Screening 1999 Lipid Panel 1999 Yearly Adult Physical 1999 MMR Vaccines (1 of 1 - Stand brad series) 2000 HPV Vaccines (1 - 3-dose series) 2014 Hepatitis C Screening 2017 Hepatitis B Vaccines (1 of 3 - 19+ 3-dose series) 2018 Cervical Cancer Screening 2020 HPV/Cotest 2020 Pap Smear 2020 DTaP/Tdap/Td Vaccines (1 - Tdap) 2021 COVID-19 Vaccine (1 - 2023-2 5 season) 2025 Influenza Vaccine (#1) 2025 Zoster Vaccines (1 of 2) 2049 HIB Vaccines Aged Out No longer eligi ble based on patient's age to complete this topic Hepatitis A Vaccines Aged Out No long er eligible based on patient's age to complete this topic IPV Vaccines Aged Out No longer eligi ble based on patient's age to complete this topic Meningococcal Vaccine Aged Out No tyler dawson eligible based on patient's age to complete this topic Pneumococcal Vaccine: Pediat rics and At-Risk Adult Patients Aged Out No longer mark gible based on patient's age to complete this topic Rotavirus Vaccines Aged Out No longer eligible based on patient's age to complete this topic Insurance [employer] Member Subscriber Plan / Payer (Ef fective 2024-Present) Name:SommerHowardDemetria Relation to Subscriber:Self Name:Howard Sommerylee Payer ID:Not on file Type:Not on file Address: [place] [id number] [employer] Member Subscriber Plan / Payer ( fective 2024-Present) Name:Kemal Demetria Relation to Subscriber:Self Name:Demetria Sommer Payer ID:Not on file Type:Not on file Address: [place] [id number] Care Teams Iridologist Relationship Specialty Start Date End Date Kaitlin Ellison MD [address] [place] [address] [place] [address] PCP - General Family Medicine 12/07/24
--- OUTSIDE RECORDS SUMMARY | 2025-08-10 18:16 | XMS_ITS | Encounter Summary ---
Author Organization [facility] Address [address] [place] [address] Care Team Providers Care Agency Trainer Name Role Phone Kaitlin Ellison MD Primary Care Provider [phone] Herber Thomas MD Unavailable Jeromy Sanchez MD Unavailable [phone] Sonja Kat APRN.EXECUTIVE ASSISTANT TO GENERAL COUNSEL Unavailable [phone] Jamila Nix RN Unavailable [phone] Source Comments In the event this information is protected by the Federal Confidentiality of Alcohol and Drug AbusePatient Records regulations: The Federal rules restrict any use of the information to criminally investigate or prosecute any alcohol or drug abuse patient.[facility] Encounter Details Date Type Department Care Team (Late st Contact Info) Description 01/05/2025 Patient Msg [facility] [address] [place] [address] Provider, [facility] genetics - preappt labs Social History Tobacco Use Types Packs/Day Years [...] is lower risk 6 08/05/2024 Data from: https://www.neighborhoodatlas.medicine.[facility]/. Last address used for calculation [address] [place] [address] 08/05/2024 Comments No Sex and Gender Information Value Date Recorded Sex Assigned at Not on file Legal Sex Female 11:15 AM EDT Gender Identity Not on file Sexual Orientation Not on file documented as of this encounter Plan of Treatment Upcoming Encounters Date Type Department Care Team (Latest Contact Info) Description 08/18/2025 1:15 PM EDT Infusion Center Hematology/Oncology [address] [place] [address] [place] [address] Fabrazyme every 2 weeks 09/01/2025 1:15 PM EDT Infusion Center Hematology/Oncology [address] [place] [address] [place] [address] Fabrazyme every 2 weeks 09/15/2025 1:30 PM EDT Infusion Center Hematology/Oncology [address] [place] [address] [place] [address] Fabrazyme every 2 weeks 09/29/2025 1:15 PM EST Infusion Center Hematology/Oncology [address] [place] [address] [place] [address] Fabrazyme every 2 weeks 10/13/2025 1:15 PM EST Infusion Center Hematology/Oncology [address] [place] [address] [place] [address] Fabrazyme every 2 weeks documented as of this encounter Visit Diagnoses Not on filedocumented in this encounter Care Teams Agency Trainer Relationship Specialty Start Date End Date Kaitlin Ellison MD [address] [place] [address] PCP - General Family Medicine 05/30/22 Herber Thomas MD [address] [facility] [facility] [place], [place] [id number] Primary Staff Physician Cardiology 10/31/22 Jeromy Sanchez MD [address] [facility] [place] [address] Physician Hematology/Oncology 01/01/23 Sonja Kat APRN.EXECUTIVE ASSISTANT TO GENERAL COUNSEL [address] [facility] [place] [address] Nurse Practitioner Hematology/Oncology 01/01/23 Jamila Nix, ARNALDO [address] [place] [address] [place] [address] Specialty Wooling Machine Operator Hematology/Oncology 01/01/23 04/27/25 documented as of this encounter
--- OUTSIDE RECORDS SUMMARY | 2025-08-10 18:16 | XMS_ITS | Patient Health Record ---
Author Organization Corporate Office Address [address] [place] [address] [address] [place] [address] Care Team Providers Care Labor And Delivery Nurse Name Role Phone Kaitlin Ellison Primary Care Provider Susana Soria [employer] PRODUCTION MANAGER DIVISION OFFICER [employer] DEPARTMENT, Traci Solares [phone] Reason For Referral No Information Problems Problem Type SNOMED Code ICD Code Onset Dates Problem Status W/U Status Risk Notes Problem Missed (69317177) Missed (O02.1) Active confirmed Problem Female infertility (4628002) Infertility, female (N97.9) Active confirmed 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 Encounters Encounter Location Date Provider Diagnosis 06 Pre Admit Testing [address] [place] [address] 12/07/2024 Traci Soria CNP Pre-op evaluation Z01.818 ; Missed O02.1 ; Infertility, female N97.9 and Fabry disease E75.21 Assessments Encounter Date Diagnosis (ICD Code) Assessment Notes Treatment Notes Treatment Clinical Notes Section Notes 12/07/2024 Pre-op evaluation (ICD-10 - Z01.818) Suction D&C 12/07/2024 Missed (ICD-10 - O02.1) Suction D&C 12/07/2024 Infertility, female (ICD-10 - N97.9) Suction D&C 12/07/2024 Fabry disease (ICD-10 - E75.21) Plan Of Treatment No Information Insurance Providers Payer Name Payer Address Payer Phone Subscriber Number Group Number Insured Name Patient Relationship to Insured Coverage Start Date Coverage End Date MMO [employer] PPO [address] [place] [address] [id number] KVNG CARIAS Self - patient is the insured
--- OUTSIDE RECORDS SUMMARY | 2025-08-10 18:16 | XMS_ITS | Encounter Summary ---
Author Organization [facility] Address [address] [place] [address] Care Team Providers Care Webbing Tacker Name Role Phone Kaitlin Ellison MD Primary Care Provider Herber Thomas MD Unavailable Jeromy Sanchez MD Unavailable [phone] Sonja Kat LOSS PREVENTION SPECIALIST.BUSINESS ADMINISTRATION PROFESSOR Unavailable [phone] Jamila Nix RN Unavailable [phone] Source Comments In the event this information is protected by the Federal Confidentiality of Alcohol and Drug AbusePatient Records regulations: The Federal rules restrict any use of the information to criminally investigate or prosecute any alcohol or drug abuse patient.[facility] Encounter Details Date Type Department Care Team (Late st Contact Info) Description 01/07/2024 Patient Msg Reproductive Endocrinology Infertility [address] [id number] Jay Scherer MD [address] [place] [address] Also Social History Tobacco Use Types Packs/Day Years [...] N ot on file 11/28/2022 Data from: https://www.neighborhoodatlas.medicine.[facility]/. Last address used for calculation [address] 11/28/2022 Comments No Sex and Gender Information Value Date Recorded Sex Assigned at Not on file Legal Sex Female 11:15 AM EDT Gender Identity Not on file Sexual Orientation Not on file documented as of this encounter Plan of Treatment Upcoming Encounters Date Type Department Care Team (Latest Contact Info) Description 08/18/2025 1:15 PM EDT Infusion Center Hematology/Oncology [address] [place] [address] [place] [address] Fabrazyme every 2 weeks 09/01/2025 1:15 PM EDT Infusion Center Hematology/Oncology [address] [place] [address] [place] [address] Fabrazyme every 2 weeks 09/15/2025 1:30 PM EDT Infusion Center Hematology/Oncology [address] [place] [address] [place] [address] Fabrazyme every 2 weeks 09/29/2025 1:15 PM EST Infusion Center Hematology/Oncology [address] [place] [address] [place] [address] Fabrazyme every 2 weeks 10/13/2025 1:15 PM EST Infusion Center Hematology/Oncology [address] [place] [address] [place] [address] Fabrazyme every 2 weeks documented as of this encounter Visit Diagnoses Not on filedocumented in this encounter Care Teams Webbing Tacker Relationship Specialty Start Date End Date Kaitlin Ellison MD [address] [place] [address] PCP - General Family Medicine 05/30/22 Herber Thomas MD [address] [place] [address] Primary Staff Physician Cardiology 10/31/22 Jeromy Sanchez MD [address] [facility] [place] [address] Physician Hematology/Oncology 01/01/23 Sonja Kat APRN.[facility] [address] [place] [address] [place] [address] Nurse Practitioner Hematology/Oncology 01/01/23 Jamila Nix, ARNALDO [address] [place] [address] [place] [address] Specialty Food And Beverage Intern Hematology/Oncology 01/01/23 04/27/25 documented as of this encounter
--- OUTSIDE RECORDS SUMMARY | 2025-08-10 18:16 | XMS_ITS | Encounter Summary ---
Author Organization [facility] Address [address] [place] [address] Care Team Providers Care Shelter Monitor Name Role Phone Kaitlin Ellison MD Primary Care Provider [phone] Herber Thomas MD Unavailable Jeromy Sanchez MD Unavailable [phone] Sonja Kat APRN.PLASTERER SPOT Unavailable [phone] Jamila Nix RN Unavailable [phone] Source Comments In the event this information is protected by the Federal Confidentiality of Alcohol and Drug AbusePatient Records regulations: The Federal rules restrict any use of the information to criminally investigate or prosecute any alcohol or drug abuse patient.[facility] Encounter Details Date Type Department Care Team (Late st Contact Info) Description 12/23/2023 Patient Msg Reproductive Endocrinology Infertility [address] [place] [address] Provider, [facility] KIM Welcome Letter Social History Tobacco Use Types Packs/Day Years [...] N ot on file 11/28/2022 Data from: https://www.neighborhoodatlas.medicine.[facility]/. Last address used for calculation [address] [place] [address] [address] 11/28/2022 Comments No Sex and Gender Information Value Date Recorded Sex Assigned at Not on file Legal Sex Female 11:15 AM EDT Gender Identity Not on file Sexual Orientation Not on file documented as of this encounter Plan of Treatment Upcoming Encounters Date Type Department Care Team (Latest Contact Info) Description 08/18/2025 1:15 PM EDT Infusion Center Hematology/Oncology [address] [place] [address] Fabrazyme every 2 weeks 09/01/2025 1:15 PM EDT Infusion Center Hematology/Oncology [address] [place] [address] [place] [address] Fabrazyme every 2 weeks 09/15/2025 1:30 PM EDT Infusion Center Hematology/Oncology [address] [facility] [place] [address] Fabrazyme every 2 weeks 09/29/2025 1:15 PM EST Infusion Center Hematology/Oncology [address] [place] [address] Fabrazyme every 2 weeks 10/13/2025 1:15 PM EST Infusion Center Hematology/Oncology [address] [place] [address] [place] [address] Fabrazyme every 2 weeks documented as of this encounter Visit Diagnoses Not on filedocumented in this encounter Care Teams Shelter Monitor Relationship Specialty Start Date End Date Kaitlin Ellison MD [address] [place] [address] PCP - General Family Medicine 05/30/22 Herber Thomas MD [address] [place] [address] Primary Staff Physician Cardiology 10/31/22 Jeromy Sanchez MD [address] [place] [address] [place] [address] Physician Hematology/Oncology 01/01/23 Sonja Kat APRN.PLASTERER SPOT [address] [place] [address] [place] [address] Nurse Practitioner Hematology/Oncology 01/01/23 Jamila Nix, ARNALDO [address] [place] [address] [place] [address] Specialty Mammalogy Teacher Hematology/Oncology 01/01/23 04/27/25 documented as of this encounter"
--- OUTSIDE RECORDS SUMMARY | 2025-08-10 18:16 | XMS_ITS | Encounter Summary ---
Author Organization [facility] Address [address] [place] [address] Care Team Providers Care Sexual Assault Social Worker Name Role Phone Kaitlin Ellison MD Primary Care Provider [phone] Herber Thomas MD Unavailable Jeromy Sanchez MD Unavailable [phone] Sonja Kat REHABILITATION CASE COORDINATOR.HEALTH SAFETY AND ENVIRONMENT MANAGER Unavailable Jamila Nix RN Unavailable [phone] Source Comments In the event this information is protected by the Federal Confidentiality of Alcohol and Drug AbusePatient Records regulations: The Federal rules restrict any use of the information to criminally investigate or prosecute any alcohol or drug abuse patient.[facility] Encounter Details Date Type Department Care Team (Late st Contact Info) Description 03/03/2024 Get Medical Advice [facility] [address] [place] [address] Alka Donohue MD, PhD [address] [facility] [address] [place] [address] Appointment follow up Social History Tobacco Use Types Packs/Day Years [...] N ot on file 11/28/2022 Data from: https://www.neighborhoodatlas.medicine.[facility]/. Last address used for calculation [address] 11/28/2022 Comments No Sex and Gender Information Value Date Recorded Sex Assigned at Not on file Legal Sex Female 11:15 AM EDT Gender Identity Not on file Sexual Orientation Not on file documented as of this encounter Plan of Treatment Upcoming Encounters Date Type Department Care Team (Latest Contact Info) Description 08/18/2025 1:15 PM EDT Infusion Center Hematology/Oncology [address] [place] [address] [place] [address] Fabrazyme every 2 weeks 09/01/2025 1:15 PM EDT Infusion Center Hematology/Oncology [address] [place] [address] [place] [address] Fabrazyme every 2 weeks 09/15/2025 1:30 PM EDT Infusion Center Hematology/Oncology [address] [place] [address] [place] [address] Fabrazyme every 2 weeks 09/29/2025 1:15 PM EST Infusion Center Hematology/Oncology [address] [place] [address] [place] [address] Fabrazyme every 2 weeks 10/13/2025 1:15 PM EST Infusion Center Hematology/Oncology [address] [place] [address] [place] [address] Fabrazyme every 2 weeks documented as of this encounter Visit Diagnoses Not on filedocumented in this encounter Care Teams Sexual Assault Social Worker Relationship Specialty Start Date End Date Kaitlin Ellison MD [address] [place] [address] PCP - General Family Medicine 05/30/22 Herber Thomas MD [address] [place] [address] Primary Staff Physician Cardiology 10/31/22 Jeromy Sanchez MD [address] [facility] [place] [address] Physician Hematology/Oncology 01/01/23 Sonja Kat APRN.HEALTH SAFETY AND ENVIRONMENT MANAGER [address] [facility] [place] [address] Nurse Practitioner Hematology/Oncology 01/01/23 Jamila Nix, ARNALDO [address] [facility] [place] [address] Specialty Customer Care Agent Hematology/Oncology 01/01/23 04/27/25 documented as of this encounter
--- OUTSIDE RECORDS SUMMARY | 2025-08-10 18:16 | XMS_ITS | Encounter Summary ---
Author Organization [facility] Address [address] [place] [address] Care Team Providers Care Retail Commission Sales Associate Name Role Phone Kaitlin Ellison MD Primary Care Provider [phone] Herber Thomas MD Unavailable Jeromy Sanchez MD Unavailable [phone] Sonja Kat HEAD DOFFER.INTEGRITY MANAGER Unavailable [phone] Jamila Nix RN Unavailable [phone] Source Comments In the event this information is protected by the Federal Confidentiality of Alcohol and Drug AbusePatient Records regulations: The Federal rules restrict any use of the information to criminally investigate or prosecute any alcohol or drug abuse patient.[facility] Encounter Details Date Type Department Care Team (Late st Contact Info) Description 04/21/2024 Patient Msg [employer] [facility] [address] [place] [address] Itzel Holland, [facility] [address] [place], [place] [id number] Expanded Carrier Screening Results Social History Tobacco Use Types Packs/Day Years [...] N ot on file 11/28/2022 Data from: https://www.neighborhoodatlas.medicine.[facility]/. Last address used for calculation [address] [address] 11/28/2022 Comments No Sex and Gender Information Value Date Recorded Sex Assigned at Not on file Legal Sex Female 11:15 AM EDT Gender Identity Not on file Sexual Orientation Not on file documented as of this encounter Plan of Treatment Upcoming Encounters Date Type Department Care Team (Latest Contact Info) Description 08/18/2025 1:15 PM EDT Infusion Center Hematology/Oncology [address] [facility] [place] [address] Fabrazyme every 2 weeks 09/01/2025 1:15 PM EDT Infusion Center Hematology/Oncology [address] [place] [address] [place] [address] Fabrazyme every 2 weeks 09/15/2025 1:30 PM EDT Infusion Center Hematology/Oncology [address] [place] [address] [place] [address] Fabrazyme every 2 weeks 09/29/2025 1:15 PM EST Infusion Center Hematology/Oncology [address] [place] [address] [place] [address] Fabrazyme every 2 weeks 10/13/2025 1:15 PM EST Infusion Center Hematology/Oncology [address] [place] [address] [place] [address] Fabrazyme every 2 weeks documented as of this encounter Visit Diagnoses Not on filedocumented in this encounter Care Teams Retail Commission Sales Associate Relationship Specialty Start Date End Date Kaitlin Ellison MD [address] [place] [phone] PCP - General Family Medicine 05/30/22 Herber Thomas MD [address] [place] [address] Primary Staff Physician Cardiology 10/31/22 Jeromy Sanchez MD [address] [place] [address] [place] [address] Physician Hematology/Oncology 01/01/23 Sonja Kat APRN.INTEGRITY MANAGER [address] [place] [address] [place] [address] Nurse Practitioner Hematology/Oncology 01/01/23 Jamila Nix, ARNALDO [address] [place] [address] [place] [address] Specialty Bobbin Presser Hematology/Oncology 01/01/23 04/27/25 documented as of this encounter
--- OUTSIDE RECORDS SUMMARY | 2025-08-10 18:16 | XMS_ITS | Encounter Summary ---
Author Organization [facility] Address [address] [place] [address] Care Team Providers Care Machine Rough Rounder Name Role Phone Kaitlin Ellison MD Primary Care Provider [phone] Herber Thomas MD Unavailable Jeromy Sanchez MD Unavailable [phone] Sonja Kat MDM DEVELOPER.LOAN ADMINISTRATOR Unavailable [phone] Jamila Nix RN Unavailable [phone] Source Comments In the event this information is protected by the Federal Confidentiality of Alcohol and Drug AbusePatient Records regulations: The Federal rules restrict any use of the information to criminally investigate or prosecute any alcohol or drug abuse patient.[facility] Encounter Details Date Type Department Care Team (Latest Contact Info) Description 05/30/2022 H&P External-NonCCF Provider, External, NUNO Do not enter address information under generic External Provider. Social History Tobacco Use Types Packs/Day Years [...] 1:15 PM EDT Infusion Center Hematology/Oncology [address] [place] [address] Fabrazyme every 2 weeks 09/01/2025 1:15 PM EDT Infusion Center Hematology/Oncology [facility] [place] [address] Fabrazyme every 2 weeks 09/15/2025 1:30 PM EDT Infusion Center Hematology/Oncology [address] [facility] [place] [address] Fabrazyme every 2 weeks 09/29/2025 1:15 PM EST Infusion Center Hematology/Oncology [address] [facility] [place] [address] Fabrazyme every 2 weeks 10/13/2025 1:15 PM EST Infusion Center Hematology/Oncology [address] [place] [address] [place] [address] Fabrazyme every 2 weeks documented as of this encounter Visit Diagnoses Not on filedocumented in this encounter Care Teams Machine Rough Rounder Relationship Specialty Start Date End Date Kaitlin Ellison MD [facility] [place] [address] PCP - General Family Medicine 05/30/22 Herber Thomas MD [address] [facility] [address] [place] [address] Primary Staff Physician Cardiology 10/31/22 Jeromy Sanchez MD [address] [facility] [address] Physician Hematology/Oncology 01/01/23 Sonja Kat APRN.LOAN ADMINISTRATOR [address] [facility] [place] [address] Nurse Practitioner Hematology/Oncology 01/01/23 Jamila Nix, ARNALDO [address] [place] [address] [place] [address] Specialty Splicer Helper Hematology/Oncology 01/01/23 04/27/25 documented as of this encounter
--- OUTSIDE RECORDS SUMMARY | 2025-08-10 18:16 | XMS_ITS | Encounter Summary ---
Author Organization [facility] Address [address] [place] [address] Care Team Providers Care Ground Support Agent Name Role Phone Kaitlin Ellison MD Primary Care Provider [phone] Herber Thomas MD Unavailable Jeromy Sanchez MD Unavailable [phone] Sonja Kat PROCESS EQUIPMENT OPERATOR.TRIMMER TAILER Unavailable [phone] Jamila Nix RN Unavailable [phone] Source Comments In the event this information is protected by the Federal Confidentiality of Alcohol and Drug AbusePatient Records regulations: The Federal rules restrict any use of the information to criminally investigate or prosecute any alcohol or drug abuse patient.[facility] Encounter Details Date Type Department Care Team (Late st Contact Info) Description 02/17/2024 Patient Msg Reproductive Endocrinology Infertility [address] [place] [address] Provider, Ccf IVF info Social History Tobacco Use Types Packs/Day Years Used Date Smoking Tobacco: Never Passive Smoke Exposure: Never Smokeless Tobacco: Never Alcohol Use Standard Drinks/Week Comments Yes 0 (1 standard drink = 0.6 oz pur e alcohol) occassionally PHQ-2 Answer Date Recorded PHQ-2 score 0 11/21/2022 Area Deprivation Index Answer Date Yoin rded National Score (1-100), lower number is lower ri sk 62 11/28/2022 State Score (1-10), lower number is lower risk N ot on file 11/28/2022 Data from: https://www.neighborhoodatlas.medicine.[facility]/. Last address used for calculation [address] [place] [address] [address] 11/28/2022 Comments No Sex and Gender Information Value Date Recorded Sex Assigned at Not on file Legal Sex Female 11:15 AM EDT Gender Identity Not on file Sexual Orientation Not on file documented as of this encounter Plan of Treatment Upcoming Encounters Date Type Department Care Team (Latest Contact Info) Description 08/18/2025 1:15 PM EDT Infusion Center Hematology/Oncology [address] [place] [address] [place] [address] Fabrazyme every 2 weeks 09/01/2025 1:15 PM EDT Infusion Center Hematology/Oncology [address] [place] [address] [place] [address] Fabrazyme every 2 weeks 09/15/2025 1:30 PM EDT Infusion Center Hematology/Oncology [address] [place] [address] [place] [address] Fabrazyme every 2 weeks 09/29/2025 1:15 PM EST Infusion Center Hematology/Oncology [address] [place] [address] [place] [address] Fabrazyme every 2 weeks 10/13/2025 1:15 PM EST Infusion Center Hematology/Oncology [address] [place] [address] [place] [address] Fabrazyme every 2 weeks documented as of this encounter Visit Diagnoses Not on filedocumented in this encounter Care Teams Ground Support Agent Relationship Specialty Start Date End Date Kaitlin Ellison MD [address] [place] [address] PCP - General Family Medicine 05/30/22 Herber Thomas MD [address] [facility] [place], [place] [address] Primary Staff Physician Cardiology 10/31/22 Jeromy Sanchez MD [address] [place] [address] Physician Hematology/Oncology 01/01/23 Sonja Kat APRN.TRIMMER TAILER [address] [facility] [place] [address] Nurse Practitioner Hematology/Oncology 01/01/23 Jamila Nix, ARNALDO [address] [place] [address] [place] [address] Specialty Student Affairs Vice President Hematology/Oncology 01/01/23 04/27/25 documented as of this encounter
--- OUTSIDE RECORDS SUMMARY | 2025-08-10 18:17 | XMS_ITS | Encounter Summary ---
Author Organization [facility] Address [address] [place] [address] Care Team Providers Care Frame Repairer Name Role Phone Kaitlin Ellison MD Primary Care Provider [phone] Herber Thomas MD Unavailable Jermoy Sanchez MD Unavailable Sonja Kat SENIOR POLICY ANALYST.COORDINATOR OF HEALTH SERVICES Unavailable [phone] Jamila Nix RN Unavailable [phone] Source Comments In the event this information is protected by the Federal Confidentiality of Alcohol and Drug AbusePatient Records regulations: The Federal rules restrict any use of the information to criminally investigate or prosecute any alcohol or drug abuse patient.[facility] Encounter Details Date Type Department Care Team (Late st Contact Info) Description 08/13/2022 [place] [address] Provider, Ccf MRI Screening Questionnaire Completion Required Social History Tobacco Use Types Packs/Day Years Used Date Smoking Tobacco: Never Assessed Area Deprivation Index Answer Date Yoni rded National Score (1-100), lower number is lower ri sk 62 06/04/2022 State Score (1-10), lower number is lower risk N ot on file 06/04/2022 Data from: https://www.neighborhoodatlas.[facility]/. Last address used for calculation [facility], [facility] [facility] 175 06/04/2022 Comments Unknown Sex and Gender Information Value Date Recorded Sex Assigned at Not on file Legal Sex Female 11:15 AM EDT Gender Identity Not on file Sexual Orientation Not on file COVID-19 Exposure Response Date Recorded In the last 10 days, have yo u been in contact with someone who was confirmed or suspected to have Coronavirus/COVID-19? No / Unsure 07/30/2022 12:02 PM EDT documented as of this encounter Plan of Treatment Upcoming Encounters Date Type Department Care Team (Latest Contact Info) Description 08/18/2025 1:15 PM EDT Infusion Center Hematology/Oncology [address] [place] [address] [place] [address] Fabrazyme every 2 weeks 09/01/2025 1:15 PM EDT Infusion Center Hematology/Oncology [address] [place] [address] [place] [address] Fabrazyme every 2 weeks 09/15/2025 1:30 PM EDT Infusion Center Hematology/Oncology [address] [place] [address] [place] [address] Fabrazyme every 2 weeks 09/29/2025 1:15 PM EST Infusion Center Hematology/Oncology [address] [place] [address] [place] [address] Fabrazyme every 2 weeks 10/13/2025 1:15 PM EST Infusion Center Hematology/Oncology [address] [place] [address] [place] [address] Fabrazyme every 2 weeks documented as of this encounter Visit Diagnoses Not on filedocumented in this encounter Care Teams Frame Repairer Relationship Specialty Start Date End Date Kaitlin Ellison MD [address] [place] [address] PCP - General Family Medicine 05/30/22 Herber Thomas MD [address] [place] [address] Primary Staff Physician Cardiology 10/31/22 Jeromy Sanchez MD [address] [facility] [place] [address] Physician Hematology/Oncology 01/01/23 Sonja Kat APRN.[facility] [address] [place] [address] Nurse Practitioner Hematology/Oncology 01/01/23 Jamila Nix, ARNALDO [address] [place] [address] Specialty Oil Well Cable Tool Operator Hematology/Oncology 01/01/23 04/27/25 documented as of this encounter
--- OUTSIDE RECORDS SUMMARY | 2025-08-10 18:17 | XMS_ITS | Encounter Summary ---
Author Organization [facility] Address [address] [place] [address] Care Team Providers Care Pbx Mechanic Name Role Phone Kaitlin Ellison MD Primary Care Provider [phone] Herber Thomas MD Unavailable Jeromy Sanchez MD Unavailable [phone] Sonja Kat LINE INSPECTOR.HVAC R TECH Unavailable [phone] Jamila Nix RN Unavailable [phone] Source Comments In the event this information is protected by the Federal Confidentiality of Alcohol and Drug AbusePatient Records regulations: The Federal rules restrict any use of the information to criminally investigate or prosecute any alcohol or drug abuse patient.[facility] Encounter Details Date Type Department Care Team (Late st Contact Info) Description 10/31/2022 Patient Msg Cardiology [address] [place] [address] Herber Thomas MD [address] [facility] [address] [place] [address] cholesterol Social History Tobacco Use Types Packs/Day Years Used Date Smoking Tobacco: Never Passive Smoke Exposure: Never Smokeless Tobacco: Never Alcohol Use Standard Drinks/Week Comments Yes 0 (1 standard drink = 0.6 oz pur e alcohol) occassionally Area Deprivation Index Answer Date Yoni rded National Score (1-100), lower number is lower ri sk 62 06/04/2022 State Score (1-10), lower number is lower risk N ot on file 06/04/2022 Data from: https://www.neighborhoodatlas.[facility]/. Last address used for calculation [address] [place] [address] [address] 06/04/2022 Comments No Sex and Gender Information Value Date Recorded Sex Assigned at Not on file Legal Sex Female 11:15 AM EDT Gender Identity Not on file Sexual Orientation Not on file documented as of this encounter Plan of Treatment Upcoming Encounters Date Type Department Care Team (Latest Contact Info) Description 08/18/2025 1:15 PM EDT Infusion Center Hematology/Oncology [address] [place] [address] [place] [address] Fabrazyme every 2 weeks 09/01/2025 1:15 PM EDT Infusion Center Hematology/Oncology [address] [place] [address] [place] [address] Fabrazyme every 2 weeks 09/15/2025 1:30 PM EDT Infusion Center Hematology/Oncology [address] [place] [address] [place] [address] Fabrazyme every 2 weeks 09/29/2025 1:15 PM EST Infusion Center Hematology/Oncology [address] [place] [address] [place] [address] Fabrazyme every 2 weeks 10/13/2025 1:15 PM EST Infusion Center Hematology/Oncology [address] [place] [address] [place] [address] Fabrazyme every 2 weeks documented as of this encounter Visit Diagnoses Not on filedocumented in this encounter Care Teams Pbx Mechanic Relationship Specialty Start Date End Date Kaitlin Ellison MD [address] [place] [address] PCP - General Family Medicine 05/30/22 Herber Thomas MD [address] [place] [address] Primary Staff Physician Cardiology 10/31/22 Jeromy Sanchez MD [address] [place] [address] [place] [address] Physician Hematology/Oncology 01/01/23 Sonja Kat APRN.HVAC R TECH [address] [place] [address] [place] [address] Nurse Practitioner Hematology/Oncology 01/01/23 Jamila Nix, ARNALDO [address] [place] [address] [place] [address] Specialty Shipfitter Helper Hematology/Oncology 01/01/23 04/27/25 documented as of this encounter
--- OUTSIDE RECORDS SUMMARY | 2025-08-10 18:17 | XMS_ITS | Encounter Summary ---
Author Organization [facility] Address [address] [place] [address] Care Team Providers Care Chicken Raiser Name Role Phone Kaitlin Ellison MD Primary Care Provider [phone] Herber Thomas MD Unavailable Jeromy Sanchez MD Unavailable [phone] Sonja Kat LARD BLEACHER.STRATEGIC PLANNING CONSULTANT Unavailable [phone] Jamila Nix RN Unavailable [phone] Source Comments In the event this information is protected by the Federal Confidentiality of Alcohol and Drug AbusePatient Records regulations: The Federal rules restrict any use of the information to criminally investigate or prosecute any alcohol or drug abuse patient.[facility] Encounter Details Date Type Department Care Team (Late st Contact Info) Description 12/21/2023 Get Medical Advice [facility] [address] [place] [address] Alka Donohue MD, PhD [address] [facility] [address] [place] [address] Update Social History Tobacco Use Types Packs/Day Years [...] ot on file 11/28/2022 Data from: https://www.neighborhoodatlas.medicine.[facility]/. Last address used for calculation [address] [facility] [address] 175 11/28/2022 Comments No Sex and Gender Information Value Date Recorded Sex Assigned at Not on file Legal Sex Female 11:15 AM EDT Gender Identity Not on file Sexual Orientation Not on file documented as of this encounter Plan of Treatment Upcoming Encounters Date Type Department Care Team (Latest Contact Info) Description 08/18/2025 1:15 PM EDT Infusion Center Hematology/Oncology [address] [place] [address] [place] [address] Fabrazyme every 2 weeks 09/01/2025 1:15 PM EDT Infusion Center Hematology/Oncology [address] [place] [address] [place] [address] Fabrazyme every 2 weeks 09/15/2025 1:30 PM EDT Infusion Center Hematology/Oncology [address] [place] [address] [place] [address] Fabrazyme every 2 weeks 09/29/2025 1:15 PM EST Infusion Center Hematology/Oncology [address] [place] [address] [place] [address] Fabrazyme every 2 weeks 10/13/2025 1:15 PM EST Infusion Center Hematology/Oncology [address] [place] [address] [place] [address] Fabrazyme every 2 weeks documented as of this encounter Visit Diagnoses Not on filedocumented in this encounter Care Teams Chicken Raiser Relationship Specialty Start Date End Date Kaitlin Ellison MD [address] [place] [address] PCP - General Family Medicine 05/30/22 Herber Thomas MD [address] [place] [address] Primary Staff Physician Cardiology 10/31/22 Jeromy Sanchez MD [address] [place] [address] [place] [address] Physician Hematology/Oncology 01/01/23 Sonja Kat, PONCE.STRATEGIC PLANNING CONSULTANT [address] [place] [address] [place] [address] Nurse Practitioner Hematology/Oncology 01/01/23 Jamila Nix, ARNALDO [address] [place] [address] [place] [address] Specialty Faith Healer Hematology/Oncology 01/01/23 04/27/25 documented as of this encounter
--- OUTSIDE RECORDS SUMMARY | 2025-08-10 18:17 | XMS_ITS | Encounter Summary ---
Author Organization [facility] Address [address] [place] [address] Care Team Providers Care Core Man Name Role Phone Kaitlin Ellison MD Primary Care Provider [phone] Herber Thomas MD Unavailable Jeromy Sanchez MD Unavailable [phone] Sonja Kat MILITARY TECHNOLOGY SPECIALIST.GORE STITCHER Unavailable [phone] Jamila Nix RN Unavailable [phone] Source Comments In the event this information is protected by the Federal Confidentiality of Alcohol and Drug AbusePatient Records regulations: The Federal rules restrict any use of the information to criminally investigate or prosecute any alcohol or drug abuse patient.[facility] Encounter Details Date Type Department Care Team (Late st Contact Info) Description 09/03/2022 Patient [facility] [address] [place] [address] Provider, Ccf Genetic Scheduling Social History Tobacco Use Types Packs/Day Years Used Date Smoking Tobacco: Never Assessed Area Deprivation Index Answer Date Yoni rded National Score (1-100), lower number is lower ri sk 62 06/04/2022 State Score (1-10), lower number is lower risk N ot on file 06/04/2022 Data from: https://www.neighborhoodatlas.medicine.[facility].edu/. Last address used for calculation [address] [place] [address] [address] 06/04/2022 Comments Unknown Sex and Gender Information Value Date Recorded Sex Assigned at Not on file Legal Sex Female 11:15 AM EDT Gender Identity Not on file Sexual Orientation Not on file documented as of this encounter Plan of Treatment Upcoming Encounters Date Type Department Care Team (Latest Contact Info) Description 08/18/2025 1:15 PM EDT Infusion Center Hematology/Oncology [address] [place] [address] [place] [address] Fabrazyme every 2 weeks 09/01/2025 1:15 PM EDT Infusion Center Hematology/Oncology [address] [place] [address] [place] [address] Fabrazyme every 2 weeks 09/15/2025 1:30 PM EDT Infusion Center Hematology/Oncology [address] [place] [address] [place] [address] Fabrazyme every 2 weeks 09/29/2025 1:15 PM EST Infusion Center Hematology/Oncology [address] [place] [address] [place] [address] Fabrazyme every 2 weeks 10/13/2025 1:15 PM EST Infusion Center Hematology/Oncology [address] [place] [address] [place] [address] Fabrazyme every 2 weeks documented as of this encounter Visit Diagnoses Not on filedocumented in this encounter Care Teams Core Man Relationship Specialty Start Date End Date Kaitlin Ellison MD [address] [place] [address] PCP - General Family Medicine 05/30/22 Herber Thomas MD [address] [place] [address] Primary Staff Physician Cardiology 10/31/22 Jeromy Sanchez MD [address] [place] [address] [place] [address] Physician Hematology/Oncology 01/01/23 Sonja Kat APRN.GORE STITCHER [address] [place] [address] Nurse Practitioner Hematology/Oncology 01/01/23 Jamila Nix RN [address] [place] [address] [place] [address] Specialty Manufacturing Lab Technician Hematology/Oncology 01/01/23 04/27/25 documented as of this encounter
--- OUTSIDE RECORDS SUMMARY | 2025-08-10 18:17 | XMS_ITS | Encounter Summary ---
Author Organization [facility] Address [address] [place] [address] Care Team Providers Care Store Operations Manager Name Role Phone Kaitlin Ellison MD Primary Care Provider [phone] Herber Thomas MD Unavailable Jeromy Sanchez MD Unavailable [phone] Sonja Kat AUTOMOTIVE SALES MANAGER.CROP OR LIVESTOCK TENANT FARMER Unavailable [phone] Jamila Nix RN Unavailable [phone] Source Comments In the event this information is protected by the Federal Confidentiality of Alcohol and Drug AbusePatient Records regulations: The Federal rules restrict any use of the information to criminally investigate or prosecute any alcohol or drug abuse patient.[facility] Encounter Details Date Type Department Care Team (Late st Contact Info) Description 06/18/2023 Get Medical Advice [facility] [address] [place] [id number] Hamida Kumar, [facility] [address] [place] [address] Infusions Social History Tobacco Use Types Packs/Day Years [...] N ot on file 11/28/2022 Data from: https://www.neighborhoodatlas.medicine.[facility]/. Last address used for calculation [address] [facility] [address] 175 11/28/2022 Comments No Sex and Gender Information Value Date Recorded Sex Assigned at Not on file Legal Sex Female 11:15 AM EDT Gender Identity Not on file Sexual Orientation Not on file documented as of this encounter Plan of Treatment Upcoming Encounters Date Type Department Care Team (Latest Contact Info) Description 08/18/2025 1:15 PM EDT Infusion Center Hematology/Oncology [address] [facility] [place] [address] Fabrazyme every 2 weeks 09/01/2025 1:15 PM EDT Infusion Center Hematology/Oncology [address] [place] [address] [place] [address] Fabrazyme every 2 weeks 09/15/2025 1:30 PM EDT Infusion Center Hematology/Oncology [address] [place] [address] [place] [address] Fabrazyme every 2 weeks 09/29/2025 1:15 PM EST Infusion Center Hematology/Oncology [address] [facility] [address] Fabrazyme every 2 weeks 10/13/2025 1:15 PM EST Infusion Center Hematology/Oncology [address] [place] [address] [place] [address] Fabrazyme every 2 weeks documented as of this encounter Visit Diagnoses Not on filedocumented in this encounter Care Teams Store Operations Manager Relationship Specialty Start Date End Date Kaitlin Ellison MD [address] [place] [address] PCP - General Family Medicine 05/30/22 Herber Thomas MD [address] [place] [address] Primary Staff Physician Cardiology 10/31/22 Jeromy Sanchez MD [address] [place] [address] [place] [address] Physician Hematology/Oncology 01/01/23 Sonja Kat APRN.CROP OR LIVESTOCK TENANT FARMER [address] [place] [address] [place] [address] Nurse Practitioner Hematology/Oncology 01/01/23 Jamila Nix, ARNALDO [address] [place] [address] [place] [address] Specialty Regional Medical Director Hematology/Oncology 01/01/23 04/27/25 documented as of this encounter
--- OUTSIDE RECORDS SUMMARY | 2025-08-10 18:17 | XMS_ITS | Encounter Summary ---
Author Organization [facility] Address [address] [place] [address] Care Team Providers Care Insurance Verification Clerk Name Role Phone Kaitlin Ellison MD Primary Care Provider [phone] Herber Thomas MD Unavailable Jeromy Sanchez MD Unavailable [phone] Sonja Kat MEDICAL TRANSCRIPTION RADIOLOGY.LABELS MOLDER Unavailable [phone] Jamila Nix RN Unavailable [phone] Source Comments In the event this information is protected by the Federal Confidentiality of Alcohol and Drug AbusePatient Records regulations: The Federal rules restrict any use of the information to criminally investigate or prosecute any alcohol or drug abuse patient.[facility] Encounter Details Date Type Department Care Team (Late st Contact Info) Description 11/21/2022 Get Medical Advice [facility] [address] [place] [id number] Hamida Kumar, [facility] [address] [place] [address] Follow Up Social History Tobacco Use Types Packs/Day Years [...] N ot on file 06/04/2022 Data from: https://www.neighborhoodatlas.medicine.[facility]/. Last address used for calculation [address] [facility] [address] 175 06/04/2022 Comments No Sex and Gender Information Value Date Recorded Sex Assigned at Not on file Legal Sex Female 11:15 AM EDT Gender Identity Not on file Sexual Orientation Not on file documented as of this encounter Plan of Treatment Upcoming Encounters Date Type Department Care Team (Latest Contact Info) Description 08/18/2025 1:15 PM EDT Infusion Center Hematology/Oncology [address] [facility] [place] [address] Fabrazyme every 2 weeks 09/01/2025 1:15 PM EDT Infusion Center Hematology/Oncology [address] [facility] [place] [address] Fabrazyme every 2 weeks 09/15/2025 1:30 PM EDT Infusion Center Hematology/Oncology [address] [facility] [place] [address] Fabrazyme every 2 weeks 09/29/2025 1:15 PM EST Infusion Center Hematology/Oncology [address] [facility] [place] [address] Fabrazyme every 2 weeks 10/13/2025 1:15 PM EST Infusion Center Hematology/Oncology [address] [facility] [place] [address] Fabrazyme every 2 weeks documented as of this encounter Visit Diagnoses Not on filedocumented in this encounter Care Teams Insurance Verification Clerk Relationship Specialty Start Date End Date Kaitlin Ellison MD [address] [place] [address] PCP - General Family Medicine 05/30/22 Herber Thomas MD [address] [place] [address] Primary Staff Physician Cardiology 10/31/22 Jeromy Sanchez MD [address] [place] [address] [place] [address] Physician Hematology/Oncology 01/01/23 Sonja Kat APRN.LABELS MOLDER [address] [place] [address] [place] [address] Nurse Practitioner Hematology/Oncology 01/01/23 Jamila Nix, ARNALDO [address] [place] [address] [place] [address] Specialty High School Director Hematology/Oncology 01/01/23 04/27/25 documented as of this encounter
--- OUTSIDE RECORDS SUMMARY | 2025-08-10 18:17 | XMS_ITS | Encounter Summary ---
Author Organization [facility] Address [address] [place] [address] Care Team Providers Care Family Practitioner Name Role Phone Kaitlin Ellison MD Primary Care Provider [phone] Herber Thomas MD Unavailable Jeromy Sanchez MD Unavailable [phone] Sonja Kat APRN.RUG CLEANER Unavailable [phone] Jamila Nix RN Unavailable [phone] Source Comments In the event this information is protected by the Federal Confidentiality of Alcohol and Drug AbusePatient Records regulations: The Federal rules restrict any use of the information to criminally investigate or prosecute any alcohol or drug abuse patient.[facility] Encounter Details Date Type Department Care Team (Late st Contact Info) Description 12/08/2022 Get Medical Advice [facility] [address] [place] [address] Boby Norton MD [address] [place] [address] Follow up on Infusions Social History Tobacco Use Types Packs/Day [...] N ot on file 11/28/2022 Data from: https://www.neighborhoodatlas.medicine.[facility]/. Last address used for calculation [address] [address] 11/28/2022 Comments No Sex and Gender Information Value Date Recorded Sex Assigned at Not on file Legal Sex Female 11:15 AM EDT Gender Identity Not on file Sexual Orientation Not on file documented as of this encounter Plan of Treatment Upcoming Encounters Date Type Department Care Team (Latest Contact Info) Description 08/18/2025 1:15 PM EDT Infusion Center Hematology/Oncology [address] [place] [address] [place] [address] Fabrazyme every 2 weeks 09/01/2025 1:15 PM EDT Infusion Center Hematology/Oncology [address] [place] [address] [place] [address] Fabrazyme every 2 weeks 09/15/2025 1:30 PM EDT Infusion Center Hematology/Oncology [address] [place] [address] [place] [address] Fabrazyme every 2 weeks 09/29/2025 1:15 PM EST Infusion Center Hematology/Oncology [address] [place] [address] [place] [address] Fabrazyme every 2 weeks 10/13/2025 1:15 PM EST Infusion Center Hematology/Oncology [address] [place] [address] [place] [address] Fabrazyme every 2 weeks documented as of this encounter Visit Diagnoses Not on filedocumented in this encounter Care Teams Family Practitioner Relationship Specialty Start Date End Date Kaitlin Ellison MD [address] [place] [address] PCP - General Family Medicine 05/30/22 Herber Thomas MD [address] [place] [address] Primary Staff Physician Cardiology 10/31/22 Jeromy Sanchez MD [address] [place] [address] Physician Hematology/Oncology 01/01/23 Sonja Kat, PONCE.RUG CLEANER [address] [place] [address] [place] [address] Nurse Practitioner Hematology/Oncology 01/01/23 Jamila Nix, ARNALDO [address] [place] [address] Specialty Collar Turner Hematology/Oncology 01/01/23 04/27/25 documented as of this encounter
--- OUTSIDE RECORDS SUMMARY | 2025-08-10 18:17 | XMS_ITS | Encounter Summary ---
Author Organization [facility] Address [address] [place] [address] Care Team Providers Care Spray Crew Name Role Phone Kaitlin Ellison MD Primary Care Provider Herber Thomas MD Unavailable Jeromy Sanchez MD Unavailable [phone] Sonja Kat SHIPPING PACKER.UTILITY MAINTENANCE WORKER Unavailable [phone] Jamila Nix RN Unavailable [phone] Source Comments In the event this information is protected by the Federal Confidentiality of Alcohol and Drug AbusePatient Records regulations: The Federal rules restrict any use of the information to criminally investigate or prosecute any alcohol or drug abuse patient.[facility] Encounter Details Date Type Department Care Team (Late st Contact Info) Description 03/01/2025 Patient Msg MRI J [address] [place] [address] Provider, [facility] Cardiac MRI appointment Social History Tobacco Use Types Packs/Day Years [...] is lower risk 6 08/05/2024 Data from: https://www.neighborhoodatlas.medicine.[facility]/. Last address used for calculation [address] [place] [address] 08/05/2024 Comments No Sex and Gender Information Value Date Recorded Sex Assigned at Not on file Legal Sex Female 11:15 AM EDT Gender Identity Not on file Sexual Orientation Not on file documented as of this encounter Plan of Treatment Upcoming Encounters Date Type Department Care Team (Latest Contact Info) Description 08/18/2025 1:15 PM EDT Infusion Center Hematology/Oncology [address] [place] [address] [place] [address] Fabrazyme every 2 weeks 09/01/2025 1:15 PM EDT Infusion Center Hematology/Oncology [address] [place] [address] [place] [address] Fabrazyme every 2 weeks 09/15/2025 1:30 PM EDT Infusion Center Hematology/Oncology [address] [place] [address] [place] [address] Fabrazyme every 2 weeks 09/29/2025 1:15 PM EST Infusion Center Hematology/Oncology [address] [place] [address] [place] [address] Fabrazyme every 2 weeks 10/13/2025 1:15 PM EST Infusion Center Hematology/Oncology [address] [place] [address] [place] [address] Fabrazyme every 2 weeks documented as of this encounter Visit Diagnoses Not on filedocumented in this encounter Care Teams Spray Crew Relationship Specialty Start Date End Date Kaitlin Ellison MD [address] [place] [address] PCP - General Family Medicine 05/30/22 Herber Thomas MD [address] [place] [address] Primary Staff Physician Cardiology 10/31/22 Jeromy Sanchez MD [address] [facility] [place] [address] Physician Hematology/Oncology 01/01/23 Sonja Kat APRN.[facility] [address] [facility] [place] [address] Nurse Practitioner Hematology/Oncology 01/01/23 Jamila Nix, ARNALDO [address] [facility] [address] [place] [address] Specialty Smokehouse Worker Hematology/Oncology 01/01/23 04/27/25 documented as of this encounter
--- OUTSIDE RECORDS SUMMARY | 2025-08-10 18:17 | XMS_ITS | Encounter Summary ---
Author Organization [facility] Address [address] [place] [address] Care Team Providers Care Manufacturing Helper Name Role Phone Kaitlin Ellison MD Primary Care Provider [phone] Herber Thomas MD Unavailable Jeromy Sanchez MD Unavailable [phone] Sonja Kat CLUB CONCIERGE.METALS SALES REPRESENTATIVE Unavailable Jamila Nix RN Unavailable [phone] Source Comments In the event this information is protected by the Federal Confidentiality of Alcohol and Drug AbusePatient Records regulations: The Federal rules restrict any use of the information to criminally investigate or prosecute any alcohol or drug abuse patient.[facility] Encounter Details Date Type Department Care Team (Late st Contact Info) Description 10/15/2023 Patient Msg [facility] [address] [id number] Hamida Kumar, [facility] [address] [place] [address] genetics follow up Social History Tobacco Use Types [...] N ot on file 11/28/2022 Data from: https://www.neighborhoodatlas.medicine.[facility]/. Last address used for calculation [address] [address] 11/28/2022 Comments No Sex and Gender Information Value Date Recorded Sex Assigned at Not on file Legal Sex Female 11:15 AM EDT Gender Identity Not on file Sexual Orientation Not on file documented as of this encounter Plan of Treatment Upcoming Encounters Date Type Department Care Team (Latest Contact Info) Description 08/18/2025 1:15 PM EDT Infusion Center Hematology/Oncology [address] [facility] [place] [address] Fabrazyme every 2 weeks 09/01/2025 1:15 PM EDT Infusion Center Hematology/Oncology [address] [facility] [place] [address] Fabrazyme every 2 weeks 09/15/2025 1:30 PM EDT Infusion Center Hematology/Oncology [address] [place] [address] [place] [address] Fabrazyme every 2 weeks 09/29/2025 1:15 PM EST Infusion Center Hematology/Oncology [address] [facility] [place] [address] Fabrazyme every 2 weeks 10/13/2025 1:15 PM EST Infusion Center Hematology/Oncology [address] [place] [address] [place] [address] Fabrazyme every 2 weeks documented as of this encounter Visit Diagnoses Not on filedocumented in this encounter Care Teams Manufacturing Helper Relationship Specialty Start Date End Date Kaitlin Ellison MD [address] [place] [address] PCP - General Family Medicine 05/30/22 Herber Thomas MD [address] [place] [address] Primary Staff Physician Cardiology 10/31/22 Jeromy Sanchez MD [address] [place] [address] [place] [address] Physician Hematology/Oncology 01/01/23 Sonja Kat APRN.METALS SALES REPRESENTATIVE [address] [place] [address] [place] [address] Nurse Practitioner Hematology/Oncology 01/01/23 Jamila Nix, ARNALDO [address] [place] [address] [place] [address] Specialty Field Kiln Burner Hematology/Oncology 01/01/23 04/27/25 documented as of this encounter
--- OUTSIDE RECORDS SUMMARY | 2025-08-10 18:17 | XMS_ITS | Encounter Summary ---
Author Organization [facility] Address [address] [place] [address] Care Team Providers Care Field Marketing Associate Name Role Phone Kaitlin Ellison MD Primary Care Provider [phone] Herber Thomas MD Unavailable Jeromy Sanchez MD Unavailable [phone] Sonja Kat TAILOR HELPER.TECHNICAL EDITOR Unavailable [phone] Jamila Nix RN Unavailable [phone] Source Comments In the event this information is protected by the Federal Confidentiality of Alcohol and Drug AbusePatient Records regulations: The Federal rules restrict any use of the information to criminally investigate or prosecute any alcohol or drug abuse patient.[facility] Encounter Details Date Type Department Care Team (Late st Contact Info) Description 04/29/2023 Get Medical Advice [facility] [address] [id number] Hamida Kumar, [facility] [address] [place] [address] Infusion Social History Tobacco Use Types Packs/Day [...] ot on file 11/28/2022 Data from: https://www.neighborhoodatlas.medicine.[facility]/. Last address used for calculation [address] [address] 11/28/2022 Comments No Sex and Gender Information Value Date Recorded Sex Assigned at Not on file Legal Sex Female 11:15 AM EDT Gender Identity Not on file Sexual Orientation Not on file documented as of this encounter Plan of Treatment Upcoming Encounters Date Type Department Care Team (Latest Contact Info) Description 08/18/2025 1:15 PM EDT Infusion Center Hematology/Oncology [address] [place] [address] Fabrazyme every 2 weeks 09/01/2025 1:15 PM EDT Infusion Center Hematology/Oncology [address] [place] [address] [place] [address] Fabrazyme every 2 weeks 09/15/2025 1:30 PM EDT Infusion Center Hematology/Oncology [address] [place] [address] [place] [address] Fabrazyme every 2 weeks 09/29/2025 1:15 PM EST Infusion Center Hematology/Oncology [address] [place] [address] Fabrazyme every 2 weeks 10/13/2025 1:15 PM EST Infusion Center Hematology/Oncology [address] [place] [address] [place] [address] Fabrazyme every 2 weeks documented as of this encounter Visit Diagnoses Not on filedocumented in this encounter Care Teams Field Marketing Associate Relationship Specialty Start Date End Date Kaitlin Ellison MD [address] [place] [address] PCP - General Family Medicine 05/30/22 Herber Thomas MD [address] [place] [address] Primary Staff Physician Cardiology 10/31/22 Jeromy Sanchez MD [address] [place] [address] [place] [address] Physician Hematology/Oncology 01/01/23 Sonja Kat APRN.TECHNICAL EDITOR [address] [place] [address] [place] [address] Nurse Practitioner Hematology/Oncology 01/01/23 Jamila Nix, ARNALDO [address] [place] [address] [place] [address] Specialty Anode Machine Operator Hematology/Oncology 01/01/23 04/27/25 documented as of this encounter
--- OUTSIDE RECORDS SUMMARY | 2025-08-10 18:17 | XMS_ITS | Encounter Summary ---
Author Organization [facility] Address [address] [place] [address] Care Team Providers Care Veteran Appeals Reviewer Name Role Phone Kaitlin Ellison MD Primary Care Provider [phone] Herber Thomas MD Unavailable Jeromy Sanchez MD Unavailable [phone] Sonja Kat APRN.INSPECTOR HANDBAG FRAMES Unavailable [phone] Jamila Nix RN Unavailable [phone] Source Comments In the event this information is protected by the Federal Confidentiality of Alcohol and Drug AbusePatient Records regulations: The Federal rules restrict any use of the information to criminally investigate or prosecute any alcohol or drug abuse patient.[facility] Encounter Details Date Type Department Care Team (Late st Contact Info) Description 06/02/2023 Patient Msg Cardiology [address] [place] [address] Marily Hall, Research Coordinator Compensated volunteer needed - Cardiac MRI research scan Social History Tobacco Use Types Packs/Day Years [...] N ot on file 11/28/2022 Data from: https://www.neighborhoodatlas.[facility]/. Last address used for calculation [address] [place] [address] [address] 11/28/2022 Comments No Sex and Gender Information Value Date Recorded Sex Assigned at Not on file Legal Sex Female 11:15 AM EDT Gender Identity Not on file Sexual Orientation Not on file documented as of this encounter Plan of Treatment Upcoming Encounters Date Type Department Care Team (Latest Contact Info) Description 08/18/2025 1:15 PM EDT Infusion Center Hematology/Oncology [address] [place] [address] [place] [address] Fabrazyme every 2 weeks 09/01/2025 1:15 PM EDT Infusion Center Hematology/Oncology [address] [place] [address] [place] [address] Fabrazyme every 2 weeks 09/15/2025 1:30 PM EDT Infusion Center Hematology/Oncology [address] [place] [address] [place] [address] Fabrazyme every 2 weeks 09/29/2025 1:15 PM EST Infusion Center Hematology/Oncology [address] [place] [address] [place] [address] Fabrazyme every 2 weeks 10/13/2025 1:15 PM EST Infusion Center Hematology/Oncology [address] [place] [address] [place] [address] Fabrazyme every 2 weeks documented as of this encounter Visit Diagnoses Not on filedocumented in this encounter Care Teams Veteran Appeals Reviewer Relationship Specialty Start Date End Date Kaitlin Ellison MD [address] [place] [address] PCP - General Family Medicine 05/30/22 Herber Thomas MD [address] [place] [address] Primary Staff Physician Cardiology 10/31/22 Jeromy Sanchez MD [address] [place] [address] [place] [address] Physician Hematology/Oncology 01/01/23 Sonja Kat APRN.INSPECTOR HANDBAG FRAMES [address] [place] [address] [place] [address] Nurse Practitioner Hematology/Oncology 01/01/23 Jamila Nix, ARNALDO [address] [place] [address] [place] [address] Specialty Obstetrics Gyn Physician Hematology/Oncology 01/01/23 04/27/25 documented as of this encounter
--- OUTSIDE RECORDS SUMMARY | 2025-08-10 18:17 | XMS_ITS | Clinical Summary ---
Author Organization [facility] Address [address] [place] [address] Care Team Providers Care Aerial Crop Duster Name Role Phone Kaitlin Ellison MD Primary Care Provider [phone] Herber Thomas MD Unavailable Jeromy Sanchez MD Unavailable [phone] Sonja Kat APRN.SENIOR HUMAN RESOURCES REPRESENTATIVE Unavailable [phone] Allergies No known active allergies Medications No known medications Active Problems Problem Noted Date Diagnosed Date Encounter for preconception consultation 024 Overview (04/22/2024): 04/22/2024 [employer] 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 Currently her symptoms are mild tinnitus and some burning in her fingertips from time to time. However, fabry can cause microvascular disease. There may be an increased risk of preeclampsia and growth restriction. Plan to check maternal echo and renal function. If there are any abnormalities on those tests they should be addressed before . Plan asa in to try and prevent/delay PET. Plan serial growth scans. 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 The patient has had genetic screening and counseling. Plan is for IVF with PGD so that the embyos do not have Fabrys. Multiple family members have Fabrys. 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, 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, bilateral 08/27/2022 Encounters Date Type Department Care Team Description 08/04/2025 1:00 PM EDT Infusion Center Hematology/Oncology [address] [place] [address] [place] [address] Fabry disease (HCC) (Primary Dx) 08/04/2025 Travel 07/21/2025 11:00 AM EDT Infusion Center Hematology/Oncology [address] [place] [address] [place] [address] Fabry disease (HCC) (Primary Dx) 07/07/2025 11:00 AM EDT Infusion Center Hematology/Oncology [address] [place] [address] [place] [address] Fabry disease (HCC) (Primary Dx) 07/02/2025 Orders Only Hematology/Oncology [address] [place] [address] [place] [address] Jeromy Sanchez MD 06/23/2025 11:00 AM EDT Infusion Center Hematology/Oncology [address] [place] [address] [place] [address] Fabry disease (HCC) (Primary Dx) 06/23/2025 Travel 06/09/2025 11:00 AM EDT Infusion Center Hematology/Oncology [address] [place] [address] [place] [address] Fabry disease (HCC) (Primary Dx) 05/26/2025 11:00 AM EDT Infusion Center Hematology/Oncology [address] [place] [address] [place] [address] Fabry disease (HCC) (Primary Dx) from Last 3 Months Family History Medical History Relation Comments No Known Problems Father No Known Problems Mother Relation Status Comments Father Alive Mother Alive Social History Tobacco Use Types Packs/Day Years Used Date Smoking Tobacco: Never Passive Smoke Exposure: Never Smokeless Tobacco: Never Tobacco Cessation:Counseling Given: Not Answered Alcohol Use Standard Drinks/Week Comments Yes 0 (1 standard drink = 0.6 oz pur e alcohol) occassionally PHQ-2 Answer Date Recorded PHQ-2 score 0 11/21/2022 Area Deprivation Index Answer Date Yoni rded National Score (1-100), lower number is lower ri sk 74 08/05/2024 State Score (1-10), lower number is lower risk 6 08/05/2024 Data from: https://www.neighborhoodatlas.medicine.[facility].edu/. Last address used for calculation [address] [place] [address] 08/05/2024 Comments No Sex and Gender Information Value Date Recorded Sex Assigned at Not on file Legal Sex Female 11:15 AM EDT Gender Identity Not on file Sexual Orientation Not on file Last Filed Vital Signs Vital Sign Reading Time Taken Comments Blood Pressure 107/66 08/04/2025 1:07 PM EDT Pulse 75 08/04/2025 1:07 PM EDT Temperature 36.7 C (98.1 F) 08/04/2025 1:07 PM EDT Respiratory Rate 16 08/04/2025 1:07 PM EDT Oxygen Saturation 99% 08/04/2025 1:07 PM EDT Inhaled Oxygen Concentration - - Weight 74.8 kg (164 lb 14.5 oz) 08/04/2025 1:07 PM EDT Height 167.6 cm (5' 6 ) 03/10/2025 12:0 4 PM EDT Body Mass Index 26.62 03/10/2025 12:04 PM EDT Plan of Treatment Upcoming Encounters Date Type Department Care Team (Latest Contact Info) Description 08/18/2025 1:15 PM EDT Infusion Center Hematology/Oncology [address] [place] [address] [place] [address] Fabrazyme every 2 weeks 09/01/2025 1:15 PM EDT Infusion Center Hematology/Oncology [address] [place] [address] [place] [address] Fabrazyme every 2 weeks 09/15/2025 1:30 PM EDT Infusion Center Hematology/Oncology [address] [facility] [place] [address] Fabrazyme every 2 weeks 09/29/2025 1:15 PM EST Infusion Center Hematology/Oncology [address] [facility] [place] [place] [address] Fabrazyme every 2 weeks 10/13/2025 1:15 PM EST Infusion Center Hematology/Oncology [address] [facility] [place] [address] Fabrazyme every 2 weeks Health Maintenance Due Date Last Done Comments Peds To Adult Transition Ini tial Discussion 2011 Peds To Adult Transition Cele ual Assessment 2013 Anxiety Screening 2017 Depression Screening 2017 HIV Screening 2017 Hepatitis C Screening 2017 Cervical Cancer Screening 2020 DTaP,Tdap,Td Vaccine (7 - Td or Tdap) 04/25/2021 04/25/2011, 04/16/2004, 04/09/2000, Additional history exists Influenza Vaccine (#1) 2025 , 11/27/2019, 12/06/2013, Additional history exists Hepatitis B Vaccine Completed 1999, 1999, 1999 HPV Vaccine Completed 12/01/2011, 06/16, 04/25/2011 Insurance [employer] P[employer] Care Teams Aerial Crop Duster Relationship Specialty Start Date End Date Kaitlin Ellison MD [address] [place] [address] PCP - General Family Medicine 05/30/22 Herber Thomas MD [address] [place] [address] Primary Staff Physician Cardiology 10/31/22 Jeromy Sanchez MD [address] [facility] [place] [address] Physician Hematology/Oncology 01/01/23 Sonja Kat APRN.SENIOR HUMAN RESOURCES REPRESENTATIVE [address] [facility] [place] [address] Nurse Practitioner Hematology/Oncology 01/01/23
--- OUTSIDE RECORDS SUMMARY | 2025-08-10 18:17 | XMS_ITS | Encounter Summary ---
Author Organization [facility] Address [address] [place] [address] Care Team Providers Care Vp Training Name Role Phone Kaitlin Ellison MD Primary Care Provider [phone] Herber Thomas MD Unavailable Jeromy Sanchez MD Unavailable [phone] Sonja Kat PORTER HEAD.TRENCH DIGGING MACHINE OPERATOR Unavailable [phone] Jamila Nix RN Unavailable [phone] Source Comments In the event this information is protected by the Federal Confidentiality of Alcohol and Drug AbusePatient Records regulations: The Federal rules restrict any use of the information to criminally investigate or prosecute any alcohol or drug abuse patient.[facility] Encounter Details Date Type Department Care Team (Late st Contact Info) Description 10/29/2022 [place] [address] Provider, Ccf Questionnaire Submission Social History Tobacco Use Types Packs/Day Years Used Date Smoking Tobacco: Never Assessed Area Deprivation Index Answer Date Yoni rded National Score (1-100), lower number is lower ri sk 62 06/04/2022 State Score (1-10), lower number is lower risk N ot on file 06/04/2022 Data from: https://www.neighborhoodatlas.[facility]/. Last address used for calculation [address] [place] [address] 175 06/04/2022 Comments Unknown Sex and Gender Information Value Date Recorded Sex Assigned at Not on file Legal Sex Female 11:15 AM EDT Gender Identity Not on file Sexual Orientation Not on file documented as of this encounter Plan of Treatment Upcoming Encounters Date Type Department Care Team (Latest Contact Info) Description 08/18/2025 1:15 PM EDT Infusion Center Hematology/Oncology [address] [place], [place] [address] [address] Fabrazyme every 2 weeks 09/01/2025 1:15 PM EDT Infusion Center Hematology/Oncology [address] [place] [address] [place] [address] Fabrazyme every 2 weeks 09/15/2025 1:30 PM EDT Infusion Center Hematology/Oncology [address] [place] [address] [place] [address] Fabrazyme every 2 weeks 09/29/2025 1:15 PM EST Infusion Center Hematology/Oncology [address] [place] [address] [place] [address] Fabrazyme every 2 weeks 10/13/2025 1:15 PM EST Infusion Center Hematology/Oncology [address] [place] [address] [place] [address] Fabrazyme every 2 weeks documented as of this encounter Visit Diagnoses Not on filedocumented in this encounter Care Teams Vp Training Relationship Specialty Start Date End Date Kaitlin Ellison MD [facility] [place] [phone] PCP - General Family Medicine 05/30/22 Herber Thomas MD [address] [place] [address] Primary Staff Physician Cardiology 10/31/22 Jeromy Sanchez MD [address] [place] [address] [place] [address] Physician Hematology/Oncology 01/01/23 Sonja Kat APRN.TRENCH DIGGING MACHINE OPERATOR [address] [facility] [place] [place] [address] Nurse Practitioner Hematology/Oncology 01/01/23 Jamila Nix, ARNALDO [address] [facility] [place] [place] [address] Specialty Production Or Plant Engineer Hematology/Oncology 01/01/23 04/27/25 documented as of this encounter
--- OUTSIDE RECORDS SUMMARY | 2025-08-10 18:17 | XMS_ITS | Encounter Summary ---
Author Organization [facility] Address [address] [place] [address] Care Team Providers Care Bleacher Kraft [employer]p Name Role Phone Kaitlin Ellison MD Primary Care Provider [phone] Herber Thomas MD Unavailable Jeromy Sanchez MD Unavailable [phone] Sonja Kat PATIENT SERVICES TECHNICIAN.INSTRUMENTATION CHEMIST Unavailable [phone] Jamila Nix RN Unavailable [phone] Source Comments In the event this information is protected by the Federal Confidentiality of Alcohol and Drug AbusePatient Records regulations: The Federal rules restrict any use of the information to criminally investigate or prosecute any alcohol or drug abuse patient.[facility] Encounter Details Date Type Department Care Team (Late st Contact Info) Description 11/19/2022 Patient Msg [employer] [facility] [address] [id number] Hamida Kumar, ELIZABETH [address] [place] [address] brain MRI Social History Tobacco Use Types Packs/Day Years [...] N ot on file 06/04/2022 Data from: https://www.neighborhoodatlas.medicine.[facility]/. Last address used for calculation [address] 175 06/04/2022 Comments No Sex and Gender Information Value Date Recorded Sex Assigned at Not on file Legal Sex Female 11:15 AM EDT Gender Identity Not on file Sexual Orientation Not on file documented as of this encounter Plan of Treatment Upcoming Encounters Date Type Department Care Team (Latest Contact Info) Description 08/18/2025 1:15 PM EDT Infusion Center Hematology/Oncology [address] [place] [address] Fabrazyme every 2 weeks 09/01/2025 1:15 PM EDT Infusion Center Hematology/Oncology [address] [place] [address] Fabrazyme every 2 weeks 09/15/2025 1:30 PM EDT Infusion Center Hematology/Oncology [address] [place] [address] Fabrazyme every 2 weeks 09/29/2025 1:15 PM EST Infusion Center Hematology/Oncology [address] [place] [address] Fabrazyme every 2 weeks 10/13/2025 1:15 PM EST Infusion Center Hematology/Oncology [address] [place] [address] Fabrazyme every 2 weeks documented as of this encounter Visit Diagnoses Not on filedocumented in this encounter Care Teams Bleacher [employer] Relationship Specialty Start Date End Date Kaitlin Ellison MD [address] [place] [address] PCP - General Family Medicine 05/30/22 Herber Thomas MD [address] [place] [address] Primary Staff Physician Cardiology 10/31/22 Jeromy Sanchez MD [address] [place] [address] [place] [address] Physician Hematology/Oncology 01/01/23 Sonja Kat APRN.INSTRUMENTATION CHEMIST [address] [place] [address] [place] [address] Nurse Practitioner Hematology/Oncology 01/01/23 Jamila Nix, ARNALDO [address] [place] [address] [place] [address] Specialty Film Splicer Hematology/Oncology 01/01/23 04/27/25 documented as of this encounter
--- OUTSIDE RECORDS SUMMARY | 2025-08-10 18:17 | XMS_ITS | Encounter Summary ---
Author Organization [facility] Address [address] [place] [address] Care Team Providers Care Watch Hairspring Assembler Name Role Phone Kaitlin Ellison MD Primary Care Provider [phone] Herber Thomas MD Unavailable Jeromy Sanchez MD Unavailable [phone] Sonja Kat PHYSICIAN PRACTICE ADMINISTRATOR.CHIEF OF STAFF DOCTOR Unavailable [phone] Jamila Nix RN Unavailable [phone] Source Comments In the event this information is protected by the Federal Confidentiality of Alcohol and Drug AbusePatient Records regulations: The Federal rules restrict any use of the information to criminally investigate or prosecute any alcohol or drug abuse patient.[facility] Encounter Details Date Type Department Care Team (Late st Contact Info) Description 11/18/2022 Patient Msg Cardiology [address] [place] [address] Herber Thomas MD [address] [facility] [address] [place] [address] Holter Social History Tobacco Use Types Packs/Day Years [...] N ot on file 06/04/2022 Data from: https://www.neighborhoodatlas.medicine.[facility]/. Last address used for calculation [address] [place] [address] Rd [address] 06/04/2022 Comments No Sex and Gender Information Value Date Recorded Sex Assigned at Not on file Legal Sex Female 11:15 AM EDT Gender Identity Not on file Sexual Orientation Not on file documented as of this encounter Plan of Treatment Upcoming Encounters Date Type Department Care Team (Latest Contact Info) Description 08/18/2025 1:15 PM EDT Infusion Center Hematology/Oncology [address] [place] [address] [place] [address] Fabrazyme every 2 weeks 09/01/2025 1:15 PM EDT Infusion Center Hematology/Oncology [address] [place] [address] [place] [address] Fabrazyme every 2 weeks 09/15/2025 1:30 PM EDT Infusion Center Hematology/Oncology [address] [place] [address] [place] [address] Fabrazyme every 2 weeks 09/29/2025 1:15 PM EST Infusion Center Hematology/Oncology [address] [place] [address] [place] [address] Fabrazyme every 2 weeks 10/13/2025 1:15 PM EST Infusion Center Hematology/Oncology [address] [place] [address] [place] [address] Fabrazyme every 2 weeks documented as of this encounter Visit Diagnoses Not on filedocumented in this encounter Care Teams Watch Hairspring Assembler Relationship Specialty Start Date End Date Kaitlin Ellison MD [address] [place] [phone] PCP - General Family Medicine 05/30/22 Herber Thomas MD [address] [place] [address] Primary Staff Physician Cardiology 10/31/22 Jeromy Sanchez MD [address] [facility] [place] [address] Physician Hematology/Oncology 01/01/23 Sonja Kat APRN.[facility] [address] [place] [address] [place] [address] Nurse Practitioner Hematology/Oncology 01/01/23 Jamila Nix, ARNALDO [address] [place] [address] [place] [address] Specialty Photography Instructor Hematology/Oncology 01/01/23 04/27/25 documented as of this encounter
--- OUTSIDE RECORDS SUMMARY | 2025-08-10 18:17 | XMS_ITS | Clinical Summary ---
Author Organization [facility] Address [address] [place] [place] [address] Care Team Providers Care Fiber Drier Operator Name Role Phone Unavailable Primary Care Provider Unavailabl e Medications estradiol (Estrace) 2 MG tablet Take 2 mg by mouth in the morning and 2 mg in the evening and 2 mg before bedtime. 05/02/2025 Active progesterone 50 MG/ML injection 06/29/2025 Act yoel Encounters Date Type Department Care Team Description 07/27/2025 3:30 PM EDT Ancillary Procedure [facility] [address] [facility] [address] [address] [place] [address] Amenorrhea; examination or test, positive result ([facility]) 07/27/2025 3:00 PM EDT Initial [facility] Flynn[address] [place] [phone] Kaley Mares CNM [place]: [id number] 07/27/2025 Travel 07/18/2025 Orders Only K[facility] CHARLES [address] [place] [phone] Kaley Mares CNM Amenorrhea; examination or test, positive result ([facility]) 06/26/2025 Telephone [facility] [address] [place] [address] Kaley Mares CNM from Last 3 Months Social History Tobacco Use Types Packs/Day Years [...] Mass Index 26.79 07/27/2025 3:17 PM EDT Plan of Treatment Upcoming Encounters Date Type Department Care Team (Late st Contact Info) Description 08/29/2025 11:00 AM EDT [facility] [address] [place] [address] Kaley Mares, SHANNAN [address] [place] [address] Procedures Procedure Name Priority Date/Time Associated Diagnosis Comments CHLAMYDIA/N. GONORRHOEAE RNA, TMA, UROGENITAL Routine 07/27/2025 4:55 PM EDT Encounter for supervision of other normal in first trimester ([facility]) URINALYSIS MICROSCOPIC Routine 07/27/2025 4:55 PM EDT Encounter for supervision of other normal in first trimester ([facility]) DRUG TOX MONITORIGN 6 W/ CONF,URINE Routine 07/27/2025 4:55 PM EDT Encounter for supervision of other normal in first trimester ([facility]) CULTURE, URINE, ROUTINE Routine 07/27/2025 4:55 PM EDT Encounter for supervision of other normal in first trimester ([facility]) US OB < 14 WEEKS EARLY Routine 07/27/2025 3:46 PM EDT Amenorrhea examination or test, positive result ([facility]) HEPATITIS C ANTIBODY Routine 07/27/2025 3:45 PM EDT Encounter for supervision of other normal in first trimester ([facility]) ABO GROUP AND RH TYPE Routine 07/27/2025 3:45 PM EDT Encounter for supervision of other normal in first trimester ([facility]) HIV-1 AND HIV-2 ANTIBODIES Routine 07/27/2025 3:45 PM EDT Encounter for supervision of other normal in first trimester ([facility]) TSH W/REFLEX TO FT4 Routine 07/27/2025 3 :45 PM EDT Encounter for supervision of other normal in first trimester ([facility]) HEMOGLOBIN A1C Routine 07/27/2025 3:45 PM EDT Encounter for supervision of other normal in first trimester ([facility]) RPR (DX) W/REFL TITER AND CONFIRMATORY TESTING Routine 07/27/2025 3:45 PM EDT Encounter for supervision of other normal in first trimester ([facility]) ANTIBODY SCREEN, RBC W/REFL ID, TITER AND AG Routine 07/27/2025 3:45 PM EDT Encounter for supervision of other normal in first trimester ([facility]) CBC Routine 07/27/2025 3:45 PM EDT Encounter for supervision of other normal in first trimester ([facility]) RUBELLA AB (IGG), IMMUNE STATUS Routine 07/27/2025 3:45 PM EDT Encounter for supervision of other normal in first trimester ([facility]) HEPATITIS B SURFACE ANTIGEN W/REFL CONFIRM Routine 07/27/2025 3:45 PM EDT Encounter for supervision of other normal in first trimester ([facility]) from Last 3 Months Results * (ABNORMAL) URINALYSIS MICROSCOPIC (07/27/2025 4:55 PM [...] Performing Organization Information Site ID: QPT Name: [facility] Address: [address] [place] [address], [address] [place] [phone] Director: Vincent Ocampo MD Kaley Mares [facility] LAB BLOOD ORDERABLES Final R esult [facility] * DRUG TOX MONITORIGN 6 W/ [...] interpreting these drug results, please contact a [facility] Toxicology Specialist: [phone] ( ), M-F, 8am-6pm EST. 07/27/2025 4:55 PM EDT 07/28/2025 12:44 AM EDT Narrative Resulting Agency Comment Performing Organization Information Site ID: QPT Name: [facility] Address: [address] [place] [address], [address] [place] [phone] Director: Vincent Ocampo MD Kaley Mares CNM LAB BODY FLUIDS AND STOOLS O RDERABLES Final Result Performing Organization Address [facility] Co de Phone Number [facility] * C. trachomatis / N. gonorrhoeae, DNA probe (07/27/2025 4:55 PM EDT) CHLAMYDIA TRACHOMATIS RNA, TMA, UROGENITAL NOT DETECTED NOT DETECTED [facility] NEISSERIA GONORRHOEAE RNA, TMA, UROGENITAL NOT DETECTED NOT DETECTED [facility] (ALWAYS MESSAGE) [facility] Comment: The analytical performance characteristics of this assay, when used to test SurePath(TM) specimens have been determined by [facility]. The modifications have not been cleared or approved by the FDA. This assay has been validated pursuant to the CLIA regulations and is used for clinical purposes. For additional information, please refer to https://education.[employer]/faq/TXX132 (This link is being provided for information/ educational purposes only.) Swab Urine specimen obtained by clean catch procedure / Unknown 07/27/2025 4:55 PM EDT 07/28/2025 12:44 AM EDT Narrative Resulting Agency Comment Performing Organization Information Site ID: QPT Name: [facility] Address: [address] [place] [address], [address] [place] [phone] Director: Vincent Ocampo MD Kaley Mares CNM LAB PATHOLOGY ORDERABLES Fin al Result Performing Organization Address [facility]/ZIP Co de Phone Number [facility] * Urine culture (07/27/2025 4:55 PM EDT) MICRO NUMBER [id number] [facility] SPECIMEN QUALITY Adequate [facility] SOURCE: ([facility]) URINE [facility] STATUS FINAL [facility] RESULT SEE NOTE [facility] Comment: No Growth Urine Urine specimen obtained by clean catch procedure / Unknown 07/27/2025 4:55 PM EDT 07/28/2025 12:44 AM EDT Narrative Resulting Agency Comment Performing Organization Information Site ID: QPT Name: [facility] Address: [address] [facility] [place] [address] Director: Vincent Ocampo MD us Kaley Mares [facility] LAB MICROBIOLOGY - GENERAL O RDERABLES Final Result [facility] * US OB less than 14 weeks [...] IMG OB US PROCEDURES Final R esult * TSH W/REFLEX TO FT4 (07/27/2025 3:45 [...] Performing Organization Information Site ID: QPT Name: [facility] Address: [address] [place] [address], [address] [place] [phone] Director: Vincent Ocampo MD Kaley Mares CNM LAB BLOOD ORDERABLES Final R esult [facility] * Hepatitis C antibody (07/27/2025 3:45 PM EDT) HEPATITIS C ANTIBODY NON-REACTI VE NON-REACT YOEL [facility] Comment: HCV antibody was non-reactive. There is no laboratory evidence of HCV infection. In most cases, no further action is required. However, if recent HCV exposure is suspected, a test for HCV RNA (test code 89538) is suggested. For additional information please refer to http://education.[employer]avegg/faq/FCX94i7 (This link is being provided for informational/ educational purposes only.) Blood Venous blood specimen / Unknown 07/27/2025 3:45 PM EDT 07/27/2025 3:46 PM EDT Narrative [facility] - 07/28/2025 1:09 PM EDT MULTIPLE COLLECTION TIMES FOR SAME TEST TYPE. Resulting Agency Comment Performing Organization Information Site ID: QPT Name: [facility] Address: [address] [place] [address], [address] [place] [phone] Director: Vincent Ocampo MD Kaley Mares [facility] LAB BLOOD ORDERABLES Final R esult Performing Organization Address [facility] de Phone Number [facility] * ABO/Rh (07/27/2025 3:45 PM EDT) ABO GROUP O [facility] RH TYPE RH(D) POSITIVE [facility] Comment: For additional information, please refer to http://education.Clout/faq/SFY471 (This link is being provided for informational/ educational purposes only.) Blood Venous blood specimen / Unknown 07/27/2025 3:45 PM EDT 07/27/2025 3:46 PM EDT Narrative [facility] - 07/28/2025 1:09 PM EDT MULTIPLE COLLECTION TIMES FOR SAME TEST TYPE. Resulting Agency Comment Performing Organization Information Site ID: QPT Name: [facility] Address: [address] [place] [address], [address] [place] [phone] Director: Vincent Ocampo MD Kaley Mares [facility] LAB BLOOD ORDERABLES Final R esult Performing Organization Address [facility] de Phone Number [facility] * Rubella antibody, IgG (07/27/2025 3:45 [...] Performing Organization Information Site ID: QPT Name: [facility] Address: [address] [place] [address], [address] [place] [phone] Director: Vincent Ocampo MD us Kaley L Floro CN LAB BLOOD ORDERABLES Final R esult Performing Organization Address [facility] Co de Phone Number [facility] * RPR (07/27/2025 3:45 PM EDT) Pathologist [facility] RPR (MONITOR) W/REFL TITER NON-REACTI VE NON-REACTI VE [facility] Blood Venous blood specimen / Unknown 07/27/2025 3:45 PM EDT 07/27/2025 3:46 PM EDT Narrative [facility] - 07/28/2025 1:09 PM EDT MULTIPLE COLLECTION TIMES FOR SAME TEST TYPE. Resulting Agency Comment Performing Organization Information Site ID: QPT Name: [facility] Address: [address] [place] [address], [address] [place] [address] Director: Vincent Ocampo MD us Kaley L Floro CN LAB BLOOD ORDERABLES Final R esult Performing Organization Address [facility] de Phone Number [facility] * HIV-1 and HIV-2 antibodies (07/27/2025 3:45 PM EDT) Pathologist [facility] HIV FINAL INTERPRETATION HIV NEGATIVE [facility] Comment: HIV-1 antigen and HIV-1/HIV-2 antibodies were not detected. There is no laboratory evidence of HIV infection. HIV AG/AB, 4TH GEN NON-REACTIVE NON-REACT YOEL [facility] Blood Venous blood specimen / Unknown 07/27/2025 3:45 PM EDT 07/27/2025 3:46 PM EDT Narrative [facility] - 07/28/2025 1:09 PM EDT MULTIPLE COLLECTION TIMES FOR SAME TEST TYPE. Resulting Agency Comment Performing Organization Information Site ID: QPT Name: [facility] Address: [address] [place] [address], [address] [place] [phone] Director: Vincent Ocampo MD us Kaley L Floro CN LAB BLOOD ORDERABLES Final R esult [facility] * Hepatitis B surface antigen (07/27/2025 3:45 PM EDT) [facility] HEPATITIS B SURFACE ANTIGEN NON-REACTI VE NON-REACTI VE [facility] Comment: For additional information, please refer to http://education.[employer]/faq/WDE599 (This link is being provided for informational/ educational purposes only.) Blood Venous blood specimen / Unknown 07/27/2025 3:45 PM EDT 07/27/2025 3:46 PM EDT Narrative [facility] - 07/28/2025 1:09 PM EDT MULTIPLE COLLECTION TIMES FOR SAME TEST TYPE. Resulting Agency Comment Performing Organization Information Site ID: QPT Name: [facility] Address: [address] [place] [address], [address] [place] [phone] Director: Vincent Ocampo MD Kaley JARA LAB BLOOD ORDERABLES Final R esult Performing Organization Address [facility] Co de Phone Number [facility] * CBC (07/27/2025 3:45 PM EDT) [facility] WHITE BLOOD CELL COUNT 9.2 3.8 - [...] Performing Organization Information Site ID: QPT Name: [facility] Address: [address] [place] [address], [address] [place] [phone] Director: Vincent Ocampo MD Kaleyedmond JARA LAB BLOOD ORDERABLES Final R esult [facility] * Antibody screen (07/27/2025 3:45 PM EDT) [facility] ANTIBODY SCREEN, RBC W/REFL ID, TITER AND [...] Performing Organization Information Site ID: QPT Name: [facility] Address: [address] [place] [address], [address] [place] [phone] Director: Vincent Ocampo MD Kaleyedmond JARA LAB BLOOD ORDERABLES Final R esult [facility] * Hemoglobin A1c (07/27/2025 3:45 PM EDT) Pathologist [facility] Hemoglobin A1C 5.3 <5.7 % [facility] Comment: [...] diagnosis of diabetes in children. According to [place] [employer] (ADA) guidelines, hemoglobin A1c <7.0% [...] Performing Organization Information Site ID: QPT Name: [facility] Address: [address] [place] [address], [address] [place] [phone] Director: Vincent Ocampo MD us Kaley JARA LAB BLOOD ORDERABLES Final R esult [facility] from Last 3 Months Insurance [employer]
--- OUTSIDE RECORDS SUMMARY | 2025-08-10 18:17 | XMS_ITS | Encounter Summary ---
Author Organization [facility] Address [address] [place] [address] Care Team Providers Care Food Preparer Name Role Phone Unavailable Primary Care Provider Unavailabl e Encounter Details Date Type Department Care Team (Latest Contact Info) Description 07/27/2025 Travel Social History Tobacco Use Types Packs/Day Years [...] Info) Description 08/29/2025 11:00 AM EDT Routine KYM CHARLES [address] [place] [address] Kaley Mares CNM [address] [place], [place] [phone] documented as of this encounter Visit Diagnoses Not on filedocumented in this encounter
--- OUTSIDE RECORDS SUMMARY | 2025-08-10 18:17 | XMS_ITS | Encounter Summary ---
Author Organization [facility] Address [address] [place] [address] Care Team Providers Care Truer Pinion And Wheel Name Role Phone Kaitlin Ellison MD Primary Care Provider [phone] Herber Thomas MD Unavailable Jeromy Sanchez MD Unavailable [phone] Sonja Kat SOCIAL SERVICE COORDINATOR.FRACTIONATION SUPERVISOR Unavailable [phone] Jamila Nix RN Unavailable [phone] Source Comments In the event this information is protected by the Federal Confidentiality of Alcohol and Drug AbusePatient Records regulations: The Federal rules restrict any use of the information to criminally investigate or prosecute any alcohol or drug abuse patient.[facility] Encounter Details Date Type Department Care Team (Late st Contact Info) Description 11/03/2023 Patient Msg [facility] [address] [id number] Hamida Kumar [facility] [address] [place] [address] genetics follow up Social History [...] on file 11/28/2022 Data from: https://www.neighborhoodatlas.medicine.[facility]/. Last address used for calculation [address] [...] 1:15 PM EDT Infusion Center Hematology/Oncology [address] [place] [address] Fabrazyme every 2 weeks 09/01/2025 1:15 PM EDT Infusion Center Hematology/Oncology [address] [place] [address] Fabrazyme every 2 weeks 09/15/2025 1:30 PM EDT Infusion Center Hematology/Oncology [address] [place] [address] [place] [address] Fabrazyme every 2 weeks 09/29/2025 1:15 PM EST Infusion Center Hematology/Oncology [address] [place] [address] Fabrazyme every 2 weeks 10/13/2025 1:15 PM EST Infusion Center Hematology/Oncology [address] [place] [address] [place] [address] Fabrazyme every 2 weeks documented as of this encounter Visit Diagnoses Not on filedocumented in this encounter Care Teams Truer Pinion And Wheel Relationship Specialty Start Date End Date Kaitlin Ellison MD [address] [place] [address] PCP - General Family Medicine 05/30/22 Herber Thomas MD [address] [place] [address] Primary Staff Physician Cardiology 10/31/22 Jeromy Sanchez MD [address] [place] [address] [place] [address] Physician Hematology/Oncology 01/01/23 Sonja Kat APRN.FRACTIONATION SUPERVISOR [address] [place] [address] [place] [address] Nurse Practitioner Hematology/Oncology 01/01/23 Jamila Nix, ARNALDO [address] [place] [address] [place] [address] Specialty Clay Caster Hematology/Oncology 01/01/23 04/27/25 documented as of this encounter
--- OUTSIDE RECORDS SUMMARY | 2025-08-10 18:17 | XMS_ITS | Encounter Summary ---
Author Organization [facility] Address [address] [place] [address] Care Team Providers Care Business Analytics Specialist Name Role Phone Kaitlin Ellison MD Primary Care Provider [phone] Herber Thomas MD Unavailable Jeromy Sanchez MD Unavailable [phone] Sonja Kat WIRE SETTER.JUMPBASTING COLLAR BASTER Unavailable Jamila Nix RN Unavailable [phone] Source Comments In the event this information is protected by the Federal Confidentiality of Alcohol and Drug AbusePatient Records regulations: The Federal rules restrict any use of the information to criminally investigate or prosecute any alcohol or drug abuse patient.[facility] Encounter Details Date Type Department Care Team (Late st Contact Info) Description 07/29/2022 Patient Msg [facility] [address] [phone] Hamida Kumar, [facility] [address] [phone] updates - both for appt for fiance as well as to do list for you Social History Tobacco Use Types Packs/Day Years Used Date Smoking Tobacco: Never Assessed Area Deprivation Index Answer Date Yoni rded National Score (1-100), lower number is lower ri sk 62 06/04/2022 State Score (1-10), lower number is lower risk N ot on file 06/04/2022 Data from: https://www.neighborhoodatlas.medicine.[facility].edu/. Last address used for calculation [facility] 06/04/2022 Comments Unknown Sex and [...] 08/18/2025 1:15 PM EDT Infusion Center Hematology/Oncology [address] [place] [address] [place] [address] Fabrazyme every 2 weeks 09/01/2025 1:15 PM EDT Infusion Center Hematology/Oncology [address] [place] [address] [place] [address] Fabrazyme every 2 weeks 09/15/2025 1:30 PM EDT Infusion Center Hematology/Oncology [address] [place] [address] [place] [address] Fabrazyme every 2 weeks 09/29/2025 1:15 PM EST Infusion Center Hematology/Oncology [address] [place] [address] [place] [address] Fabrazyme every 2 weeks 10/13/2025 1:15 PM EST Infusion Center Hematology/Oncology [address] [place] [address] [place] [address] Fabrazyme every 2 weeks documented as of this encounter Visit Diagnoses Not on filedocumented in this encounter Care Teams Business Analytics Specialist Relationship Specialty Start Date End Date Kaitlin Ellison MD [address] [place] [address] PCP - General Family Medicine 05/30/22 Herber Thomas MD [address] [place] [address] Primary Staff Physician Cardiology 10/31/22 Jeromy Sanchez MD [address] [facility] [address] [address] Physician Hematology/Oncology 01/01/23 Sonja Kat, PONCE.JUMPBASTING COLLAR BASTER [address] [place] [address] [place] [address] Nurse Practitioner Hematology/Oncology 01/01/23 Jamila Nix, ARNALDO [address] [facility] [address] Specialty Online Publisher Hematology/Oncology 01/01/23 04/27/25 documented as of this encounter
--- OUTSIDE RECORDS SUMMARY | 2025-08-10 18:17 | XMS_ITS | Encounter Summary ---
Author Organization [facility] Address [address] [place] [address] Care Team Providers Care Electrical Products Engineer Name Role Phone Kaitlin Ellison MD Primary Care Provider Herber Thomas MD Unavailable Jeromy Sanchez MD Unavailable [phone] Sonja Kat TECHNICAL SALES REPRESENTATIVE.FURNISHINGS CONSERVATOR Unavailable [phone] Jamila Nix RN Unavailable [phone] Source Comments In the event this information is protected by the Federal Confidentiality of Alcohol and Drug AbusePatient Records regulations: The Federal rules restrict any use of the information to criminally investigate or prosecute any alcohol or drug abuse patient.[facility] Encounter Details Date Type Department Care Team (Late st Contact Info) Description 11/03/2022 Patient Msg Cardiology [address] [place] [address] Provider, Ccf Appointment Cancellation Request Social History Tobacco Use Types Packs/Day Years [...] N ot on file 06/04/2022 Data from: https://www.neighborhoodatlas.medicine.[facility]/. Last address used for calculation [address] [place] [address] [address] 06/04/2022 Comments No Sex and Gender Information Value Date Recorded Sex Assigned at Not on file Legal Sex Female 11:15 AM EDT Gender Identity Not on file Sexual Orientation Not on file documented as of this encounter Plan of Treatment Upcoming Encounters Date Type Department Care Team (Latest Contact Info) Description 08/18/2025 1:15 PM EDT Infusion Center Hematology/Oncology [address] [place] [address] [place] [address] Fabrazyme every 2 weeks 09/01/2025 1:15 PM EDT Infusion Center Hematology/Oncology [address] [place] [address] [place] [address] Fabrazyme every 2 weeks 09/15/2025 1:30 PM EDT Infusion Center Hematology/Oncology [address] [place] [address] [place] [address] Fabrazyme every 2 weeks 09/29/2025 1:15 PM EST Infusion Center Hematology/Oncology [address] [place] [address] [place] [address] Fabrazyme every 2 weeks 10/13/2025 1:15 PM EST Infusion Center Hematology/Oncology [address] [place] [address] [place] [address] Fabrazyme every 2 weeks documented as of this encounter Visit Diagnoses Not on filedocumented in this encounter Care Teams Electrical Products Engineer Relationship Specialty Start Date End Date Kaitlin Ellison MD [address] [place] [address] PCP - General Family Medicine 05/30/22 Herber Thomas MD [address] [place] [address] Primary Staff Physician Cardiology 10/31/22 Jeromy Sanchez MD [address] [facility] [place] [address] Physician Hematology/Oncology 01/01/23 Sonja Kat APRN.FURNISHINGS CONSERVATOR [address] [facility] [place] [address] Nurse Practitioner Hematology/Oncology 01/01/23 Jamila Nix, ARNALDO [address] [facility] [place] [address] Specialty Global Process Owner Hematology/Oncology 01/01/23 04/27/25 documented as of this encounter
--- OUTSIDE RECORDS SUMMARY | 2025-08-10 18:17 | XMS_ITS | Encounter Summary ---
Author Organization [facility] Address [address] [place] [address] Care Team Providers Care Wet Pour Supervisor Name Role Phone Kaitlin Ellison MD Primary Care Provider [phone] Herber Thomas MD Unavailable Jeromy Sanchez MD Unavailable [phone] Sonja Kat APRN.EXCAVATING CONTRACTOR Unavailable [phone] Source Comments In the event this information is protected by the Federal Confidentiality of Alcohol and Drug AbusePatient Records regulations: The Federal rules restrict any use of the information to criminally investigate or prosecute any alcohol or drug abuse patient.[facility] Encounter Details Date Type Department Care Team (Latest Contact Info) Description 08/04/2025 Travel Social History Tobacco Use Types Packs/Day [...] is lower risk 6 08/05/2024 Data from: https://www.neighborhoodatlas.medicine.[facility].edu/. Last address used for calculation [address] [place] [address] 08/05/2024 Comments No Sex and Gender Information Value Date Recorded Sex Assigned at Not on file Legal Sex Female 11:15 AM EDT Gender Identity Not on file Sexual Orientation Not on file documented as of this encounter Plan of Treatment Upcoming Encounters Date Type Department Care Team (Latest Contact Info) Description 08/18/2025 1:15 PM EDT Infusion Center Hematology/Oncology [address] [place] [address] Fabrazyme every 2 weeks 09/01/2025 1:15 PM EDT Infusion Center Hematology/Oncology [address] [place] [address] [place] [address] Fabrazyme every 2 weeks 09/15/2025 1:30 PM EDT Infusion Center Hematology/Oncology [address] [place] [address] [place] [address] Fabrazyme every 2 weeks 09/29/2025 1:15 PM EST Infusion Center Hematology/Oncology [address] [place] [address] [place] [address] Fabrazyme every 2 weeks 10/13/2025 1:15 PM EST Infusion Center Hematology/Oncology [address] [facility] [address] Fabrazyme every 2 weeks documented as of this encounter Visit Diagnoses Not on filedocumented in this encounter Care Teams Wet Pour Supervisor Relationship Specialty Start Date End Date Kaitlin Ellison MD [address] [place] [address] PCP - General Family Medicine 05/30/22 Herber Thomas MD [address] [place] [address] Primary Staff Physician Cardiology 10/31/22 Jeromy Sanchez MD [address] [place] [address] Physician Hematology/Oncology 01/01/23 Sonja Kat APRN.EXCAVATING CONTRACTOR [address] [place] [address] [place] [address] Nurse Practitioner Hematology/Oncology 01/01/23 documented as of this encounter
--- OUTSIDE RECORDS SUMMARY | 2025-08-10 18:17 | XMS_ITS | Encounter Summary ---
Author Organization [facility] Address [address] [place] [address] Care Team Providers Care Waste Salvager Name Role Phone Kaitlin Ellison MD Primary Care Provider [phone] Herber Thomas MD Unavailable Jeromy Sanchez MD Unavailable [phone] Sonja Kat MD DO RESIDENT U[facility]ENT CARE.DYE TUB TENDER Unavailable [phone] Jamila Nix RN Unavailable [phone] Source Comments In the event this information is protected by the Federal Confidentiality of Alcohol and Drug AbusePatient Records regulations: The Federal rules restrict any use of the information to criminally investigate or prosecute any alcohol or drug abuse patient.[facility] Encounter Details Date Type Department Care Team (Late st Contact Info) Description 02/24/2025 [place] [address] Provider, Ccf Questionnaire Submission Social History Tobacco [...] risk 6 08/05/2024 Data from: https://www.neighborhoodatlas.medicine.[facility]/. Last address used for calculation [address] [place] [address] 08/05/2024 Comments No Sex and Gender Information Value Date Recorded Sex Assigned at Not on file Legal Sex Female 11:15 AM EDT Gender Identity Not on file Sexual Orientation Not on file documented as of this encounter Plan of Treatment Upcoming Encounters Date Type Department Care Team (Latest Contact Info) Description 08/18/2025 1:15 PM EDT Infusion Center Hematology/Oncology [address] [place] [address] [place] [address] Fabrazyme every 2 weeks 09/01/2025 1:15 PM EDT Infusion Center Hematology/Oncology [address] [place] [address] [place] [address] Fabrazyme every 2 weeks 09/15/2025 1:30 PM EDT Infusion Center Hematology/Oncology [address] [place] [address] [place] [address] Fabrazyme every 2 weeks 09/29/2025 1:15 PM EST Infusion Center Hematology/Oncology [address] [place] [address] [place] [address] Fabrazyme every 2 weeks 10/13/2025 1:15 PM EST Infusion Center Hematology/Oncology [address] [place] [address] [place] [address] Fabrazyme every 2 weeks documented as of this encounter Visit Diagnoses Not on filedocumented in this encounter Care Teams Waste Salvager Relationship Specialty Start Date End Date Kaitlin Ellison MD [address] [place] [address] PCP - General Family Medicine 05/30/22 Herber Thomas MD [address] [place] [address] Primary Staff Physician Cardiology 10/31/22 Jeromy Sanchez MD [address] [place] [address] Physician Hematology/Oncology 01/01/23 Sonja Kat APRN.DYE TUB TENDER [address] [place] [address] Nurse Practitioner Hematology/Oncology 01/01/23 Jamila Nix, ARNALDO [address] [place] [address] Specialty Work Manager Hematology/Oncology 01/01/23 04/27/25 documented as of this encounter
[2025-08-10 18:26] LABS: Hematocrit 36.0 % (36.0-48.0); Hemoglobin 12.5 g/dL (12.0-16.0); Immature Granulocytes Abs Auto 0.05 10^3/uL (0.00-0.03); Immature Granulocytes Pct Auto 0.5 % (0.0-0.5); Lymphocytes Absolute Auto 3.0 10^3/uL (1.2-3.8); Mean Corpuscular HGB Conc 34.7 g/dL (29.9-35.2); Mean Corpuscular Hemoglobin 29.1 pg (26.7-34.0); Mean Corpuscular Volume 83.7 fL (81.0-99.0); Platelet Count 337 10^3/uL (150-450); Red Blood Count 4.30 10^6/uL (4.20-5.40); White Blood Count 10.5 10^3/uL (4.0-11.0)
[2025-08-10 18:30] LABS: Glucose Urine UA NEGATIVE (NEGATIVE)
[2025-08-10 18:38] LABS: Anion Gap 12.6; Blood Urea Nitrogen 11.0 mg/dL (7.0-18.0); Calcium 8.8 mg/dL (8.5-10.1); Carbon Dioxide 25.4 mmol/L (21.0-32.0); Chloride 103 mmol/L (98-107); Estimated GFR (African America >60 (>=60 mL/min/1.73m^2); Estimated GFR (Non-African Ame >60 (>=60 mL/min/1.73m^2); Glucose 87 mg/dL (74-106); Potassium 4.0 mmol/L (3.5-5.1); Sodium 137 mmol/L (136-145)
[2025-08-10 18:42] LABS: Cast Seen? NONE SEEN #/LPF (NONE SEEN); Crystals Seen? None Seen #/HPF (None Seen); Urine Culture Indicated YES-FRMC
--- NOTE | 2025-08-10 20:09 | ED.PREGNANC1 ---
HPI - General Chief complaint: OB/Uterine Contractions Stated complaint: CRAMPING AND / FLORO WANTS ULTRASOUND Time Seen by Provider: 08/10/25 18:06 Source: patient Mode of arrival: walk-in History of Present Illness HPI Narrative: 11 weeks . IVF. today developed cramping of her abdomen and became concerned and came in. No urinary symptoms. No fever or flank pain now that she has been here the cramping has eased up. Feels much better when she is lying supine as opposed to standing Related Data Home Medications ?Medication ?Instructions ?Recorded ?Confirmed No Known Home Medications 08/10/25 08/10/25 Allergies Allergy/AdvReac Type Severity Reaction Status Date / Time No Known Drug Allergies Allergy Verified 08/10/25 17:51 Review of Systems ROS Status of ROS 10 or more systems reviewed and unremarkable except as noted in history and below PFSH PFSH Social History Little interest or pleasure in doing things: not at all Feeling down, depressed, or hopeless: not at all Exam Constitutional Vital Signs, click to edit/add: Last Vital Signs Temp 98.8 F 08/10/25 17:51 Pulse 57 L 08/10/25 20:23 Resp 16 08/10/25 20:23 BP 116/62 08/10/25 20:23 Pulse Ox 99 08/10/25 20:23 O2 Del Method Room Air 08/10/25 20:23 Common normals: no apparent distress, average body habitus, oriented x3, no limitations, healthy appearing, alert and well nourished [facility] Common normals: normocephalic, head/scalp atraumatic and hearing grossly normal bilaterally Eye Common normals: PERRL, EOMs intact bilaterally and conjunctivae normal Respiratory Common normals: normal respiratory effort, no retractions, no use of accessory muscles and clear to auscultation bilaterally Cardio Common normals: regular rate, regular rhythm, S1 normal heart sound and S2 normal heart sound GI Common normals: Normal to inspection, nondistended, normoactive bowel sounds present, soft to palpation and non-tender Extremity Common normals: normal to inspection and full ROM Neuro Common normals: oriented x3, CN's II-XII intact bilaterally and moves all extremities Psych Appearance: grossly normal Course Vital Signs Vital signs: Vital Signs Temperature 98.8 F 08/10/25 17:51 Pulse Rate 69 08/10/25 17:51 Respiratory Rate 16 08/10/25 17:51 Blood Pressure 103/70 08/10/25 17:51 Pulse Oximetry 100 08/10/25 17:51 Oxygen Delivery Method Room Air 08/10/25 17:51 Temperature 98.8 F 08/10/25 17:51 Pulse Rate 57 L 08/10/25 20:23 Respiratory Rate 16 08/10/25 20:23 Blood Pressure 116/62 08/10/25 20:23 Pulse Oximetry 99 08/10/25 20:23 Oxygen Delivery Method Room Air 08/10/25 20:23 MDM - OB/Uterine Contractions MDM Narrative Medical decision making narrative: 11 weeks IVF. presents with lower abdominal cramping. No vag discharge or urinary symptoms. labs and pelvic ultrasound ordered ultrasound demonstrates live IUP. Has hemorrhage which may be Lab Data Labs: Lab Results 08/10/25 08/10/25 Range/Units 18:00 18:17 WBC 10.5 (4.0-11.0) 10^3/uL RBC 4.30 (4.20-5.40) 10^6/uL Hgb 12.5 (12.0-16.0) g/dL Hct 36.0 (36.0-48.0) % MCV 83.7 (81.0-99.0) fL MCH 29.1 (26.7-34.0) pg MCHC 34.7 (29.9-35.2) g/dL RDW 12.3 (11.0-15.0) % Plt Count 337 (150-450) 10^3/uL MPV 9.4 L (9.5-13.5) fL Neut % (Auto) 63.8 (43.0-75.0) % Lymph % (Auto) 28.1 (20.5-60.0) % [place] % (Auto) 6.4 (1.7-12.0) % Eos % (Auto) 0.9 (0.9-7.0) % Baso % (Auto) 0.3 (0.2-2.0) % Neut # (Auto) 6.7 H (1.4-6.5) 10^3/uL Lymph # (Auto) 3.0 (1.2-3.8) 10^3/uL [place] # (Auto) 0.7 (0.3-0.8) 10^3/uL Eos # (Auto) 0.1 (0.0-0.7) 10^3/uL Baso # (Auto) 0.0 (0.0-0.1) 10^3/uL Abs Immat Gran (auto) 0.05 H (0.00-0.03) 10^3/uL Imm/Tot Granulo (auto) 0.5 (0.0-0.5) % Sodium 137 (136-145) mmol/L Potassium 4.0 (3.5-5.1) mmol/L Chloride 103 (98-107) mmol/L Carbon Dioxide 25.4 (21.0-32.0) mmol/L Anion Gap 12.6 BUN 11.0 (7.0-18.0) mg/dL Creatinine 0.64 (0.55-1.02) mg/dL Est GFR ( Amer) >60 (>=60 mL/min/1.73m^2) Est GFR (Non-Af Amer) >60 (>=60 mL/min/1.73m^2) BUN/Creatinine Ratio 17.2 Glucose 87 (74-106) mg/dL Calcium 8.8 (8.5-10.1) mg/dL HCG, Quant 78490 mIU/mL Urine Color Lt. yellow (YELLOW) Urine Clarity Clear (CLEAR) Urine pH 6.0 (5.0-9.0) Ur Specific [place] <=1.005 A (1.005-1.025) Urine Protein Negative (NEG/TRACE) mg/dL Urine Glucose (UA) Negative (NEGATIVE) mg/dL Urine Ketones Negative (NEGATIVE) mg/dL Urine Occult Blood Negative (NEGATIVE) Urine Nitrite Negative (NEGATIVE) Urine Bilirubin Negative (NEGATIVE) Urine Urobilinogen 0.2 (0.2-1.0) EU/dL Ur Leukocyte Esterase Small A (NEGATIVE) Urine RBC 0-2 (0-2) #/HPF Urine WBC 2-5 A (NONE SEEN) #/HPF Ur Squamous Epith Cells Few A (NONE/RARE) #/LPF Urine Crystals None seen (None Seen) #/HPF Urine Bacteria Small A (NONE SEEN) #/HPF Urine Casts None seen (NONE SEEN) #/LPF Urine Mucus None seen (NONE SEEN) Ur Culture Indicated? Yes-[facility] Imaging Data Chest x-ray: Radiologist's impression: ITS Impressions Transvaginal US 08/10/25 18:06 IMPRESSION: Single live intrauterine gestation with heart rate 159bpm. Heterogeneous signal adjacent gestational sac noted 4.2 cm x 1.6 x 1.7 cm in size. Questionable a implantational hemorrhage. Close attention on follow-up imaging recommended. Impression dictated by: John Arguelles M.D. 08/10/2025 8:26 PM Dictation Location: [employer] Electronically authenticated by: [id number] Y Date: 08/10/2025 20:26 Discharge Plan Discharge Chief Complaint: OB/Uterine Contractions Clinical Impression: Pyuria, Abdominal pain during Patient Disposition: Home, Self-Care Condition: Good Mode of Transportation: Private Vehicle Prescriptions / Home Meds: No Action No Known Home Medications Print Language: Kinyarwanda Instructions: Abdominal Pain in (ED), Urinary Tract Infection in (ED) Referrals: AGUS LEWIS APRN, CNM [Primary Care Provider, ROUNDHOUSE SUPERVISOR] - 1 week Discharge Date/Time: 08/10/25 20:50
[2025-08-10 20:23] VITALS: BP 116/62; PULSE 57; O2SAT 99
== END 2025-08-10 20:50 | disposition home or self-care (01) ==
PROVIDERS: Emergency Medicine; Emergency Provider Internal Medicine; PCP Midwife
DX: O99.891 Other specified diseases and conditions complicating pregnancy (principal); R10.9 Unspecified abdominal pain; R82.81 Pyuria; Z3A.11 11 weeks gestation of pregnancy
CPT/HCPCS: 36415; 76817; 80048; 81001; 84702; 85025; 87086; 99285